=== PATIENT | female | born 1955 | race Caucasian/White ===

== ENCOUNTER 2017-05-15 07:05 | Observation (INO) | payer OTHER, SELFPAY ==
[2017-05-15] VITALS (12 sets, daily range): BP systolic 115–160; BP diastolic 65–104; PULSE 63–93; RESP 15–18; TEMP 36.4–37; O2SAT 94–100; BMI 25.8; BMI 32.7; BMI 32.8
--- NOTE | 2017-05-15 07:17 | RAD_ITS ---
STUDY: X-RAY CHEST REASON FOR EXAM: Female, 61 years old. Chest pain TECHNIQUE: Single frontal view of the chest. COMPARISON: None. FINDINGS: Calcified granuloma in the right midlung. The lungs are clear and expanded. There is no demonstrated pleural abnormality. Normal size heart. Normal mediastinum and luis. Normal visualized pulmonary arteries. Normal visualized aortic arch and descending thoracic aorta. Normal visualized thoracic spine. Normal visualized ribs, clavicles, and shoulders. There is no demonstrated abnormality of the visualized soft tissue structures of the upper abdomen. RAD/Chest 1 View (Portable) IMPRESSION: No acute pulmonary findings. Electronically Signed: Rubén Tucker MD at 7:34 EST Tel , Service support ,
--- NOTE | 2017-05-15 07:17 | EKG12_ITS ---
Test Reason : CP Blood Pressure : / mmHG Vent. Rate : 087 BPM Atrial Rate : 087 BPM P-R Int : 154 ms QRS Dur : 086 ms QT Int : 368 ms P-R-T Axes : 064 -02 044 degrees QTc Int : 442 ms Normal sinus rhythm Nonspecific ST abnormality Abnormal ECG Confirmed by JOSSIE POSADAS, VALDEZ ([id number]), editor managing newspaper DONELL SANDERS ([id number]) on 05/17/2017 1:20:56 PM Referred By: FAUSTINA Confirmed By:VALDEZ SETHI MD
--- NOTE | 2017-05-15 07:22 | ED.DCSUM_ITS ---
- ER Visit Summary Date of Service: 05/15/17 Chief Complaint: Chest pain History of Present Illness: The patient is a 61 F presenting with chest pain which started last night around 11 PM. She states she had intermittent pain throughout the evening. Pain is in the midsternal area radiating to her left shoulder. She denies diaphoresis, shortness of breath, nausea. She also complains of epigastric pain. She has a history of hypertension. Denies PE/DVT risk factors. She is a previous smoker. Physical Examination: Vitals are stable. Patient is afebrile. Alert no acute distress. HEENT exam is unremarkable. Neck is supple. Lungs are clear and equal bilaterally. Heart is regular rate and rhythm. Abdomen is soft nontender nondistended. No guarding or rebound. Extremities are unremarkable. Skin is warm and dry. No focal neurologic deficit. Remainder of exam is unremarkable. Emergency Department Course and Treatment: EKG is sinus rate of [address] depression laterally. Chest x-ray shows no acute process. CBC, chemistries unremarkable other than potassium 3.3. Liver lipase are normal. Troponin is negative. She is given aspirin, morphine, Zofran on arrival. On reevaluation, she is chest pain-free. Discussed with the hospitalist for observation. Disposition: Observation Impression: Chest pain This note was generated with [employer] dictation software. It may contain incorrect words, spelling, and punctuation that were not noted in review of the chart prior to signing ED Disposition - Plan for ED Patient: Chief Complaint: Chest Pain
[2017-05-15 07:29] LABS: Absolute Lymphocyte Count 2.08 X10^3/ul (0.83-4.51); Absolute Neutrophil Count 5.5 X10^3/uL (2.0-7.7); Basophil# 0.06 X10^3/uL; Basophil% 0.7 % (0-1); Eosinophils% 3.5 % (0-5); Hematocrit 43.8 % (37-47); Hemoglobin 14.5 g/dl (12.0-15.0); Lymphocyte # 2.08 X10^3/ul (4.0); Mean Corp Hgb Conc 33.1 g/gl (32-36); Mean Corpuscular Hgb 30.1 pg (27.0-32.0); Mean Corpuscular Volume 91.1 fL (81-99); Mean Platelet Vol. 9.6 fl (6.2-12.0); Monocyte# 0.69 X10^3/uL; Neutrophil % 63.6 % (47-70); POSITIVE COUNT NO; POSITIVE DIFFERENTIAL NO; POSITIVE MORPHOLOGY NO; Platelet Count 289 K/mm3 (150-450); RBC Distribution Width CV 13.4 % (11.6-14.6); RBC Distribution Width SD 44.3 fl (35.1-43.9); Red Blood Count 4.81 M/mm3 (4.2-5.4); White Blood Count 8.7 K/mm3 (4.4-11.0)
[2017-05-15] MEDS: Aspirin 81 MG TAB.CHEW 324 MG PO (07:35)
[2017-05-15] MEDS: Ondansetron 4 MG/2 ML Vial IV (07:37)
[2017-05-15 07:44] LABS: Anion Gap 6 (5-15); BUN 22 mg/dL (7-18); BUN/Creat Ratio 24.7 RATIO (10-20); Calcium,Total 9.7 mg/dL (8.5-10.1); Chloride 102 mmol/L (98-107); Creatinine, Serum 0.89 mg/dL (0.55-1.02); EST Glomerular Filtration Rate 68 mL/min (>60); Est Glom Filt Rate - Afr Amer 82 mL/min (>60); Estimated Creatinine Clearance 69.96 ml/min; Glucose 123 mg/dL (74-106); Lipase 179 U/L (73-393); Potassium 3.3 mmol/L (3.5-5.1); Sodium Level 140 mmol/L (136-145)
[2017-05-15 07:49] LABS: AST(SGOT) 23 U/L (15-37); Alanine Aminotransfer ALT/SGPT 41 U/L (13-56); Albumin, Serum 3.9 g/dL (3.2-5.0); Alkaline Phosphatase 101 U/L (45-117); Bilirubin, Direct 0.12 mg/dL (0.00-0.30); Globulin 4.3 g/dL (2.2-4.2); Protein, Total 8.2 g/dL (6.4-8.2)
--- NOTE | 2017-05-15 09:53 | PCM.HP.STD ---
Problem List (1) Hypertension Status: Chronic History of Present Illness Date of Admission: 05/15/17 Chief Complaint: Chest pain. The patient is a 61 year old F with past medical history as mentioned above presented to the emergency room because of chest pain. Her abdomen started last night around 11 PM with central chest pain, retrosternal, constant pain, dull aching pain, 8 out of 10 in severity, radiates to the left side of her chest and underneath her left breast, associated with dizziness and without aggravating or relieving factors. She denied shortness of breath, sweating, nausea vomiting. Also, she complains of vague epigastric pain that has been going on for some time. In the emergency room, her blood pressure was slightly elevated, other vital signs were stable. Her routine blood work was remarkable for potassium of 3.3, otherwise normal. Troponin is negative. EKG revealed sinus rhythm with minimal ST depression in leads V3 and V4, otherwise normal. Chest x-ray showed no acute findings. She is being admitted for chest pain for evaluation. Past Medical History Past Medical History (Chronic Problems): Chronic Problems Hypertension (Chronic) Allergies ciprofloxacin HCl [From Cipro HC] Allergy (Verified 09/07/13 09:40) Swelling hydrocortisone [From Cipro HC] Allergy (Verified 09/07/13 09:40) Swelling Home Medications: Ambulatory Orders Medication Instructions Recorded Hydrochlorothiazide 25 mg PO DAILY 09/07/13 Lansoprazole [Prevacid] 30 mg PO DAILY 09/07/13 Loratadine [Claritin] 10 mg PO DAILY 09/07/13 Metoprolol Tartrate [Lopressor 50 mg PO BID 09/07/13 (Beta Milton)] Surgical History: cholecystectomy Psychiatric History: Anxiety 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 Denies: Chest Tightness, Light Headedness, Orthopnea, Paroxysmal Noc. Dyspnea, Syncope Respiratory: Denies: Cough, Shortness of Breath, Sputum production, Wheezing Gastrointestinal: Reports: Nausea. Denies: Abdominal Pain, Constipation, Diarrhea, Vomiting Genitourinary: Denies: Dysuria, Frequency, Hematuria Musculoskeletal: Denies: Arm Pain, Back Pain, Foot Pain Skin: Denies: Dryness, Rash Neurological: Denies: Balance problems, Double vision, Change in Speech, Slurred speech, Confusion, Headaches, Numbness, Tingling Psychiatric: Reports: Anxiety. Denies: Depression Endocrine: Denies: Change in Body Habitus, Polydipsia VTE Information - Inpt Only VTE Present on Admission: No VTE Mechan Device Prophylaxis: None VTE Pharm Prophylaxis ordered?: Yes - Physical Exam General: Alert, Oriented x3, Cooperative, No apparent distress HEENT: Atraumatic, PERRLA, EOMI Oral: Moist Mucosa, No Gingival or Mucosal Lesions/ Ulcerations Neck: Supple, No JVD, Negative Carotid Bruits, Trachea Midline, Thyroid Normal Size and Texture Lungs: Clear to auscultation, Normal air movement, No rhonchi, No wheeze, No rales Cardiovascular: Regular rate, Regular Rhythm, Normal S1, Normal S2, No murmurs Abdomen: Bowel Sounds Present, Soft, Non Tender, Non-Distended, No Hepato-splenomegaly Extremities: No clubbing, No cyanosis, No edema Skin: No rashes, No breakdown Lymphatic: No Cervical, Supraclavicular, or Inguinal Adenopathy Neurological: Cranial nerves II-XII grossly intact, Motor Exam 5/5 strength throughout Psych/Mental Status: Normal Affect, Appropriate, Alert and oriented to time, place, person, mood and affect Vital Signs Temp Pulse Resp BP Pulse Ox 97.8 F 75 16 141/91 H 95 05/15/17 07:10 05/15/17 08:43 05/15/17 08:43 05/15/17 08:43 05/15/17 08:43 Oxygen Delivery Method Room Air Weight: 196 lb 13.965 oz Body Mass Index (BMI) 32.7 Laboratory Tests 05/15/17 05/15/17 05/15/17 Range/Units 07:17 07:17 07:17 WBC 8.7 (4.4-11.0) K/mm3 RBC 4.81 (4.2-5.4) M/mm3 Hgb 14.5 (12.0-15.0) g/dl Hct 43.8 (37-47) % MCV 91.1 (81-99) fL MCH 30.1 (27.0-32.0) pg MCHC 33.1 (32-36) g/gl RDW 13.4 (11.6-14.6) % RDW Differential 44.3 H (35.1-43.9) fl Plt Count 289 (150-450) K/mm3 MPV 9.6 (6.2-12.0) fl Immature Gran % (Auto) 0.200 (0.0-0.9) % Neut % (Auto) 63.6 (47-70) % Lymph % (Auto) 24.0 (19-41) % Weld % (Auto) 8.0 (0-10) % Eos % (Auto) 3.5 (0-5) % Baso % (Auto) 0.7 (0-1) % Absolute Neuts (auto) 5.5 (2.0-7.7) X10^3/uL Absolute Lymphs (auto) 2.08 (0.83-4.51) X10^3/ul Total Counted Not Reportable Sodium 140 (136-145) mmol/L Potassium 3.3 L (3.5-5.1) mmol/L Chloride 102 (98-107) mmol/L Carbon Dioxide 32.0 (21.0-32.0) mmol/L Anion Gap 6 (5-15) BUN 22 H (7-18) mg/dL Creatinine 0.89 (0.55-1.02) mg/dL Estim Creat Clear Calc 69.96 ml/min Est GFR (MDRD) Af Amer 82 (>60) mL/min Est GFR (MDRD) Non-Af 68 (>60) mL/min BUN/Creatinine Ratio 24.7 H (10-20) RATIO Glucose 123 H (74-106) mg/dL Calcium 9.7 (8.5-10.1) mg/dL Total Bilirubin 0.60 (0.20-1.00) mg/dL Direct Bilirubin 0.12 (0.00-0.30) mg/dL AST 23 (15-37) U/L ALT 41 (13-56) U/L Alkaline Phosphatase 101 (45-117) U/L Troponin I < 0.02 (<0.06) ng/mL Total Protein 8.2 (6.4-8.2) g/dL Albumin 3.9 (3.2-5.0) g/dL Globulin 4.3 H (2.2-4.2) g/dL Lipase 179 (73-393) U/L Clinical Impression(s) from Imaging Studies Chest X-Ray 05/15/17 07:17 IMPRESSION: No acute pulmonary findings. Electronically Signed: Rubén Tucker MD at 7:34 EST Tel , Service support , Assessment/Plan This is a 61 years old female patient presented to the medicine because of chest pain and she is being admitted for evaluation. #1 chest pain: Seems to be atypical. Risk factors are only hypertension. Her CAMMIE score is 0. EKG reviewed, no acute ischemic changes. First troponin is negative. She denied family history of premature CAD. Plan: Admit to PCU for observation, cardiac monitoring, serial cardiac enzymes, Protonix twice daily repeat EKG tomorrow morning, treadmill stress test tomorrow morning if cardiac enzymes are negative, lipid profile. #2 hypokalemia: Secondary to HCTZ, potassium 3.3. Plan to replace potassium with K Dur. #3 GERD: Continue PPI, Protonix twice daily. #4 hypertension: Blood pressure slightly elevated. Plan to continue HCTZ, hold metoprolol for stress test, IV hydralazine as needed. #5 DVT prophylaxis, subcu Lovenox. This note was generated with [employer] dictation software. It may contain incorrect words, spelling, and punctuation that were not noted in checking the note before signing. Code Visit OBSV E&M: 43466 Initial observation care L2
--- NOTE | 2017-05-15 10:01 | HP.PCM_ITS ---
Problem List (1) Hypertension Status: Chronic History of Present Illness Date of Admission: 05/15/17 Chief Complaint: Chest pain. The patient is a 61 year old F with past medical history as mentioned above presented to the emergency room because of chest pain. Her abdomen started last night around 11 PM with central chest pain, retrosternal, constant pain, dull aching pain, 8 out of 10 in severity, radiates to the left side of her chest and underneath her left breast, associated with dizziness and without aggravating or relieving factors. She denied shortness of breath, sweating, nausea vomiting. Also, she complains of vague epigastric pain that has been going on for some time. In the emergency room, her blood pressure was slightly elevated, other vital signs were stable. Her routine blood work was remarkable for potassium of 3.3, otherwise normal. Troponin is negative. EKG revealed sinus rhythm with minimal ST depression in leads V3 and V4, otherwise normal. Chest x-ray showed no acute findings. She is being admitted for chest pain for evaluation. Past Medical History Past Medical History (Chronic Problems): Chronic Problems Hypertension (Chronic) Allergies ciprofloxacin HCl [From Cipro HC] Allergy (Verified 09/07/13 09:40) Swelling hydrocortisone [From Cipro HC] Allergy (Verified 09/07/13 09:40) Swelling Home Medications: Ambulatory Orders Medication Instructions Recorded Hydrochlorothiazide 25 mg PO DAILY 09/07/13 Lansoprazole [Prevacid] 30 mg PO DAILY 09/07/13 Loratadine [Claritin] 10 mg PO DAILY 09/07/13 Metoprolol Tartrate [Lopressor 50 mg PO BID 09/07/13 (Beta Milton)] Surgical History: cholecystectomy Psychiatric History: Anxiety 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 Denies: Chest Tightness, Light Headedness , Orthopnea, Paroxysmal Noc. Dyspnea, Syncope Respiratory: Denies: Cough, Shortness of Breath, Sputum production, Wheezing Gastrointestinal: Reports: Nausea. Denies: Abdominal Pain, Constipation, Diarrhea, Vomiting Genitourinary: Denies: Dysuria, Frequency, Hematuria Musculoskeletal: Denies: Arm Pain, Back Pain, Foot Pain Skin: Denies: Dryness, Rash Neurological: Denies: Balance problems, Double vision, Change in Speech, Slurred speech, Confusion, Headaches, Numbness, Tingling Psychiatric: Reports: Anxiety. Denies: Depression Endocrine: Denies: Change in Body Habitus, Polydipsia VTE Information - Inpt Only VTE Present on Admission: No VTE Mechan Device Prophylaxis: None VTE Pharm Prophylaxis ordered?: Yes - Physical Exam General: Alert, Oriented x3, Cooperative, No apparent distress HEENT: Atraumatic, PERRLA, EOMI Oral: Moist Mucosa, No Gingival or Mucosal Lesions/ Ulcerations Neck: Supple, No JVD, Negative Carotid Bruits, Trachea Midline, Thyroid Normal Size and Texture Lungs: Clear to auscultation, Normal air movement, No rhonchi, No wheeze, No rales Cardiovascular: Regular rate, Regular Rhythm, Normal S1, Normal S2, No murmurs Abdomen: Bowel Sounds Present, Soft, Non Tender, Non-Distended, No Hepato- splenomegaly Extremities: No clubbing, No cyanosis, No edema Skin: No rashes, No breakdown Lymphatic: No Cervical, Supraclavicular, or Inguinal Adenopathy Neurological: Cranial nerves II-XII grossly intact, Motor Exam 5/5 strength throughout Psych/Mental Status: Normal Affect, Appropriate, Alert and oriented to time, place, person, mood and affect Vital Signs Temp Pulse Resp BP Pulse Ox 97.8 F 75 16 141/91 H 95 05/15/17 07:10 05/15/17 08:43 05/15/17 08:43 05/15/17 08:43 05/15/17 08:43 Oxygen Delivery Method Room Air Weight: 196 lb 13.965 oz Body Mass Index (BMI) 32.7 Laboratory Tests 3 05/15/17 05/15/17 05/15/17 Range/Units 07:17 07:17 07:17 WBC 8.7 (4.4-11.0) K/mm3 RBC 4.81 (4.2-5.4) M/mm3 Hgb 14.5 (12.0-15.0) g/dl Hct 43.8 (37-47) % MCV 91.1 (81-99) fL MCH 30.1 (27.0-32.0) pg MCHC 33.1 (32-36) g/gl RDW 13.4 (11.6-14.6) % RDW Differential 44.3 H (35.1-43.9) fl Plt Count 289 (150-450) K/mm3 MPV 9.6 (6.2-12.0) fl Immature Gran % (Auto) 0.200 (0.0-0.9) % Neut % (Auto) 63.6 (47-70) % Lymph % (Auto) 24.0 (19-41) % [place]eth % (Auto) 8.0 (0-10) % Eos % (Auto) 3.5 (0-5) % Baso % (Auto) 0.7 (0-1) % Absolute Neuts (auto) 5.5 (2.0-7.7) X10^3/uL Absolute Lymphs (auto) 2.08 (0.83-4.51) X10^3/ul Total Counted Not Reportable Sodium 140 (136-145) mmol/L Potassium 3.3 L (3.5-5.1) mmol/L Chloride 102 (98-107) mmol/L Carbon Dioxide 32.0 (21.0-32.0) mmol/L Anion Gap 6 (5-15) BUN 22 H (7-18) mg/dL Creatinine 0.89 (0.55-1.02) mg/dL Estim Creat Clear Calc 69.96 ml/min Est GFR (MDRD) Af Amer 82 (>60) mL/min Est GFR (MDRD) Non-Af 68 (>60) mL/min BUN/Creatinine Ratio 24.7 H (10-20) RATIO Glucose 123 H (74-106) mg/dL Calcium 9.7 (8.5-10.1) mg/dL Total Bilirubin 0.60 (0.20-1.00) mg/dL Direct Bilirubin 0.12 (0.00-0.30) mg/dL AST 23 (15-37) U/L ALT 41 (13-56) U/L Alkaline Phosphatase 101 (45-117) U/L Troponin I < 0.02 (<0.06) ng/mL Total Protein 8.2 (6.4-8.2) g/dL Albumin 3.9 (3.2-5.0) g/dL Globulin 4.3 H (2.2-4.2) g/dL Lipase 179 (73-393) U/L Clinical Impression(s) from Imaging Studies Chest X-Ray 05/15/17 07:17 IMPRESSION: No acute pulmonary findings. Electronically Signed: Rubén Tucker MD at 7:34 EST Tel , Service support , Assessment/Plan This is a 61 years old female patient presented to the medicine because of chest pain and she is being admitted for evaluation. #1 chest pain: Seems to be atypical. Risk factors are only hypertension. Her CAMMIE score is 0. EKG reviewed, no acute ischemic changes. First troponin is negative. She denied family history of premature CAD. Plan: Admit to PCU for observation, cardiac monitoring, serial cardiac enzymes, Protonix twice daily repeat EKG tomorrow morning, treadmill stress test tomorrow morning if cardiac enzymes are negative, lipid profile. #2 hypokalemia: Secondary to HCTZ, potassium 3.3. Plan to replace potassium with K Dur. #3 GERD: Continue PPI, Protonix twice daily. #4 hypertension: Blood pressure slightly elevated. Plan to continue HCTZ, hold metoprolol for stress test, IV hydralazine as needed. #5 DVT prophylaxis, subcu Lovenox. This note was generated with [employer] dictation software. It may contain incorrect words, spelling, and punctuation that were not noted in checking the note before signing. Code Visit OBSV E&M: 41355 Initial observation care L2
[2017-05-15] MEDS: 0.9% Normal Saline 1,000 ML 75 ML IV (10:26)
[2017-05-15] MEDS: Pantoprazole Sodium 40 MG Tablet PO ×2 (10:30→21:43)
[2017-05-15] MEDS: hydroCHLOROthiazide 25 MG Tablet PO (10:30)
[2017-05-15] MEDS: Loratadine 10 MG Tablet PO (10:30)
[2017-05-15 11:05] LABS: Cholesterol 183 mg/dL (200); High Density Lipoprotein 51 mg/dL; Triglycerides 114 mg/dL; Very Low Density Lipoprotein 23 mg/dL (5-40)
[2017-05-15] MEDS: Naproxen 250 MG Tablet PO (17:46)
[2017-05-16 03:00] VITALS: PULSE 67
[2017-05-16 03:30] VITALS: BP 120/77; PULSE 67; RESP 18; TEMP 37; O2SAT 96
[2017-05-16 05:20] LABS: Hematocrit 38.5 % (37-47); Hemoglobin 12.5 g/dl (12.0-15.0); Mean Corp Hgb Conc 32.5 g/gl (32-36); Mean Corpuscular Hgb 30.3 pg (27.0-32.0); Mean Corpuscular Volume 93.2 fL (81-99); Mean Platelet Vol. 9.5 fl (6.2-12.0); Platelet Count 242 K/mm3 (150-450); RBC Distribution Width CV 13.4 % (11.6-14.6); RBC Distribution Width SD 44.7 fl (35.1-43.9); Red Blood Count 4.13 M/mm3 (4.2-5.4)
[2017-05-16 05:23] LABS: Prothrombin Time (Protime)PT. 13.2 SECONDS (11.7-14.9)
[2017-05-16 05:24] LABS: Partial Thromboplast Time 31.3 Seconds (24.1-36.2)
[2017-05-16 05:29] LABS: Anion Gap 7 (5-15); BUN 16 mg/dL (7-18); Calcium,Total 8.5 mg/dL (8.5-10.1); Chloride 104 mmol/L (98-107); EST Glomerular Filtration Rate 77 mL/min (>60); Est Glom Filt Rate - Afr Amer 93 mL/min (>60); Estimated Creatinine Clearance 64.77 ml/min; Glucose 100 mg/dL (74-106); Sodium Level 141 mmol/L (136-145)
[2017-05-16 05:37] LABS: Scan Indicated on CBC? Y/N NO
--- NOTE | 2017-05-16 05:55 | EKG12_ITS ---
Test Reason : AM EKG Blood Pressure : / mmHG Vent. Rate : 072 BPM Atrial Rate : 072 BPM P-R Int : 178 ms QRS Dur : 088 ms QT Int : 412 ms P-R-T Axes : 058 -09 030 degrees QTc Int : 451 ms Normal sinus rhythm Normal ECG When compared with ECG of 15-MAY-2017 07:13, MANUAL COMPARISON REQUIRED, DATA IS UNCONFIRMED Confirmed by BROOKE VALLES ([id number]), newspaper editor DONELL SANDERS ([id number]) on 05/18/2017 3:17:57 PM Referred By: DR ROBERTS Confirmed By:BROOKE VALLES
[2017-05-16 06:10] VITALS: BP 144/82; PULSE 72; RESP 16; TEMP 36.6; O2SAT 99
[2017-05-16] MEDS: hydroCHLOROthiazide 25 MG Tablet PO (08:50)
[2017-05-16] MEDS: Pantoprazole Sodium 40 MG Tablet PO (08:50)
[2017-05-16] MEDS: Loratadine 10 MG Tablet PO (08:50)
[2017-05-16] MEDS: Naproxen 250 MG Tablet PO (08:58)
[2017-05-16 09:00] VITALS: PULSE 85
--- NOTE | 2017-05-16 09:50 | STRESSREP ---
Stress Test Report Date: 05/16/2017 Procedure: Exercise tolerance test/imaging study Indications: Chest pain Consent: Per the patient Procedure: The patient exercised a Byron protocol for 6 minutes completing stage II achieving a peak heart rate of 162 bpm (103% predicted maximal heart rate) with a peak blood pressure 174/78 mmHg and a peak MET capacity of approximately 7 MET's. The baseline ECG demonstrated normal sinus rhythm. The peak exercise ECG demonstrated no obvious ECG changes. There was a rare premature ectopic complexes during exercise. The functional capacity was considered average. There was no complaint of chest discomfort during exercise recovery. The examination was discontinued secondary to completion of protocol. Impression: 1. Technically adequate (percent predicted maximal heart rate greater than 85%) exercise tolerance test 2. Peak exercise ECG with no obvious ECG changes 3. Rare premature ectopic complexes during exercise 4. Nuclear images pending Myocardial perfusion imaging study: Technique: The patient was injected with 13.8 mCi of technetium 99m Cardiolite and subsequently rest SPECT Cardiolite nuclear imaging was obtained in the horizontal long, vertical long, and short axis views. The patient exercised a Byron protocol for 6 minutes completing stage II achieving a peak heart rate of 162 bpm (103% predicted maximal heart rate) with a peak blood pressure 174/78 mmHg and a peak MET capacity of approximately 7 MET's the patient was injected with 42.3 mCi of technetium 99m Cardiolite and subsequently stress SPECT Cardiolite nuclear imaging was obtained in the horizontal long, vertical long, and short axis views. A gated Cardiolite study at peak stress was obtained. Interpretation: Rest and stress SPECT Cardiolite nuclear imaging status post realignment, normalization, and attenuation correction, demonstrates the appearance of relative uniform tracer uptake and myocardial perfusion appearing within normal limits. There is end systolic thickening and brightening. The gated Cardiolite study demonstrates myocardial thickening and inward wall motion. The reported LVEF is 79%. Impression: 1. Rest and stress SPECT Cardiolite nuclear imaging demonstrates relative uniform tracer uptake and myocardial perfusion appearing within normal limits. 2. The gated Cardiolite study reports an LVEF of 79%. This note was generated with [employer] software. Every effort was made to ensure accuracy, however, computerized cash controller mistakes may persist.
--- NOTE | 2017-05-16 09:56 | STRESSREP_ITS ---
Stress Test Report Date: 05/16/2017 Procedure: Exercise tolerance test/imaging study Indications: Chest pain Consent: Per the patient Procedure: The patient exercised a Byron protocol for 6 minutes completing stage II achieving a peak heart rate of 162 bpm (103% predicted maximal heart rate) with a peak blood pressure 174/78 mmHg and a peak MET capacity of approximately 7 MET 's. The baseline ECG demonstrated normal sinus rhythm. The peak exercise ECG demonstrated no obvious ECG changes. There was a rare premature ectopic complexes during exercise. The functional capacity was considered average. There was no complaint of chest discomfort during exercise recovery. The examination was discontinued secondary to completion of protocol. Impression: 1. Technically adequate (percent predicted maximal heart rate greater than 85% ) exercise tolerance test 2. Peak exercise ECG with no obvious ECG changes 3. Rare premature ectopic complexes during exercise 4. Nuclear images pending Myocardial perfusion imaging study: Technique: The patient was injected with 13.8 mCi of technetium 99m Cardiolite and subsequently rest SPECT Cardiolite nuclear imaging was obtained in the horizontal long, vertical long, and short axis views. The patient exercised a Byron protocol for 6 minutes completing stage II achieving a peak heart rate of 162 bpm (103% predicted maximal heart rate) with a peak blood pressure 174/78 mmHg and a peak MET capacity of approximately 7 MET's the patient was injected with 42.3 mCi of technetium 99m Cardiolite and subsequently stress SPECT Cardiolite nuclear imaging was obtained in the horizontal long, vertical long, and short axis views. A gated Cardiolite study at peak stress was obtained. Interpretation: Rest and stress SPECT Cardiolite nuclear imaging status post realignment, normalization, and attenuation correction, demonstrates the appearance of relative uniform tracer uptake and myocardial perfusion appearing within normal limits. There is end systolic thickening and brightening. The gated Cardiolite study demonstrates myocardial thickening and inward wall motion. The reported LVEF is 79%. Impression: 1. Rest and stress SPECT Cardiolite nuclear imaging demonstrates relative uniform tracer uptake and myocardial perfusion appearing within normal limits. 2. The gated Cardiolite study reports an LVEF of 79%. This note was generated with [employer] software. Every effort was made to ensure accuracy, however, computerized pinsetter mechanic helper mistakes may persist.
--- NOTE | 2017-05-16 10:06 | DCINST_ITS ---
You will use the following diet at home:: Cardiac Your food should be the consistency of: Regular Discharge Activity: Return to Normal Activity Weight Bearing Status: Full weight bearing Call your doctor if you observe: Fever of 101 or Higher, Shortness of breath, Dizziness, Fainting spells, Chest pain, Increased palpitations (irregular heartbeat), Uncontrolled pain Instructions: Controlling High Blood Pressure, Tips for Using Less Salt, Low- Salt Choices, Taking Your Blood Pressure, Discharge Instructions for Gastroesophageal Reflux Disease (GERD) Allergies/Adverse Reactions: Allergies ciprofloxacin HCl [From Cipro HC] Allergy (Verified 09/07/13 09:40) Swelling hydrocortisone [From Cipro HC] Allergy (Verified 09/07/13 09:40) Swelling Medications to take at Discharge Hydrochlorothiazide 25 mg PO DAILY 09/07/13 Lansoprazole [Prevacid] 30 mg PO DAILY 09/07/13 Loratadine [Claritin] 10 mg PO DAILY 09/07/13 Metoprolol Tartrate [Lopressor (beta gilberto)] 50 mg PO BID 09/07/13 Primary Care Physician: Ty Rivas MD [Primary Care Provider] - Please follow up with your Primary Care Physician in: 1-2 weeks.
[2017-05-16 10:46] VITALS: BP 151/98; PULSE 73; RESP 13; TEMP 36.8; O2SAT 93
--- NOTE | 2017-05-16 12:49 | PCM.DC.SUM ---
Discharge Date and Diagnosis Date of Admission: 05/15/17 Date of Discharge: 05/16/17 - Primary Discharge Diagnosis #1 chest pain, attributed to possible GERD, ACS ruled out. #2 mild hypokalemia. - Secondary Discharge Diagnosis Chronic Problems Hypertension (Chronic) Hospital Course and Treatment Imaging Results: 05/16/17 05:55 Nuclear Stress Test - Treadmil [NM] AM (NON MEDS) Clinical Impression(s) from Imaging Studies Chest X-Ray 05/15/17 07:17 IMPRESSION: No acute pulmonary findings. Electronically Signed: Rubén Tucker MD at 7:34 EST Tel , Service support , Operations: None Procedures: EKG, Stress test Summary of Care Provided: Patient seen and examined on the day of discharge and appeared to be stable to be discharged home. She has no more chest pain. Vital signs are stable. - Physical Exam General: Alert, Oriented x3, Cooperative, No apparent distress. HEENT: Atraumatic, PERRLA, EOMI. Neck: Supple, No JVD, Negative Carotid Bruits, Trachea Midline, Thyroid Normal. Lungs: Clear to auscultation, Normal air movement, No rhonchi, No wheeze, No rales. Cardiovascular: Regular rate, Regular Rhythm, Normal S1, Normal S2, PMI Normal. Abdomen: Bowel Sounds Present, Soft, Non Tender, Non-Distended, No Hepato-splenomegaly. Extremities: No clubbing, No cyanosis, No edema Skin: No rashes, No breakdown Neurological: Neuro grossly intact Vital Signs are stable. Hospital course: The patient is a 61 year old F because of chest pain for evaluation. The chest pain was atypical according to the patient history and her only risk factor was hypertension. Her EKG revealed normal sinus rhythm without acute ischemic changes. Troponin was negative ?3. Chest x-ray showed no acute findings. She underwent nuclear stress test that revealed no evidence of stress-induced myocardial ischemia, ACS ruled out. Her potassium most likely because of HCTZ which was replaced and corrected. Patient with history of GERD and this is probably the etiology of her chest pain. Her other vital signs were stable. Patient discharged home in a stable medical condition, discharged on the same medication that she has been taking before admission including PPI, recommended follow-up with PCP in 1-2 weeks. Discharge Activity: Return to Normal Activity Weight Bearing Status: Full weight bearing Call your doctor if you observe: Fever of 101 or Higher, Shortness of breath, Dizziness, Fainting spells, Chest pain, Increased palpitations (irregular heartbeat), Uncontrolled pain Home Medications: Medications to take at Discharge Hydrochlorothiazide 25 mg PO DAILY 09/07/13 Lansoprazole [Prevacid] 30 mg PO DAILY 09/07/13 Loratadine [Claritin] 10 mg PO DAILY 09/07/13 Metoprolol Tartrate [Lopressor (beta gilberto)] 50 mg PO BID 09/07/13 Primary Care Physician: Ty Rivas MD [Primary Care Provider] - Please follow up with your Primary Care Physician in: 1-2 weeks. Patient Instructions: Controlling High Blood Pressure, Tips for Using Less Salt, Low-Salt Choices, Taking Your Blood Pressure, Discharge Instructions for Gastroesophageal Reflux Disease (GERD) Disposition: Home Minutes spent on discharge:: 24 Patient Condition:: Stable Meaningful Use Info Meaningful Use Diagnoses (Choose all that apply): None applicable Code Visit OBSV E&M: 83789 Observation care discharge
--- NOTE | 2017-05-16 12:52 | DS.PCM_ITS ---
Discharge Date and Diagnosis Date of Admission: 05/15/17 Date of Discharge: 05/16/17 - Primary Discharge Diagnosis #1 chest pain, attributed to possible GERD, ACS ruled out. #2 mild hypokalemia. - Secondary Discharge Diagnosis Chronic Problems Hypertension (Chronic) Hospital Course and Treatment Imaging Results: 05/16/17 05:55 Nuclear Stress Test - Treadmil [NM] AM (NON MEDS) Clinical Impression(s) from Imaging Studies Chest X-Ray 05/15/17 07:17 IMPRESSION: No acute pulmonary findings. Electronically Signed: Rubén Tucker MD at 7:34 EST Tel , Service support , Operations: None Procedures: EKG, Stress test Summary of Care Provided: Patient seen and examined on the day of discharge and appeared to be stable to be discharged home. She has no more chest pain. Vital signs are stable. - Physical Exam General: Alert, Oriented x3, Cooperative, No apparent distress. HEENT: Atraumatic, PERRLA, EOMI. Neck: Supple, No JVD, Negative Carotid Bruits, Trachea Midline, Thyroid Normal. Lungs: Clear to auscultation, Normal air movement, No rhonchi, No wheeze, No rales. Cardiovascular: Regular rate, Regular Rhythm, Normal S1, Normal S2, PMI Normal. Abdomen: Bowel Sounds Present, Soft, Non Tender, Non-Distended, No Hepato- splenomegaly. Extremities: No clubbing, No cyanosis, No edema Skin: No rashes, No breakdown Neurological: Neuro grossly intact Vital Signs are stable. Hospital course: The patient is a 61 year old F because of chest pain for evaluation. The chest pain was atypical according to the patient history and her only risk factor was hypertension. Her EKG revealed normal sinus rhythm without acute ischemic changes. Troponin was negative ?3. Chest x-ray showed no acute findings. She underwent nuclear stress test that revealed no evidence of stress-induced myocardial ischemia, ACS ruled out. Her potassium most likely because of HCTZ which was replaced and corrected. Patient with history of GERD and this is probably the etiology of her chest pain. Her other vital signs were stable. Patient discharged home in a stable medical condition, discharged on the same medication that she has been taking before admission including PPI, recommended follow-up with PCP in 1-2 weeks. Discharge Activity: Return to Normal Activity Weight Bearing Status: Full weight bearing Call your doctor if you observe: Fever of 101 or Higher, Shortness of breath, Dizziness, Fainting spells, Chest pain, Increased palpitations (irregular heartbeat), Uncontrolled pain Home Medications: Medications to take at Discharge Hydrochlorothiazide 25 mg PO DAILY 09/07/13 Lansoprazole [Prevacid] 30 mg PO DAILY 09/07/13 Loratadine [Claritin] 10 mg PO DAILY 09/07/13 Metoprolol Tartrate [Lopressor (beta gilberto)] 50 mg PO BID 09/07/13 Primary Care Physician: Ty Rivas MD [Primary Care Provider] - Please follow up with your Primary Care Physician in: 1-2 weeks. Patient Instructions: Controlling High Blood Pressure, Tips for Using Less Salt , Low-Salt Choices, Taking Your Blood Pressure, Discharge Instructions for Gastroesophageal Reflux Disease (GERD) Disposition: Home Minutes spent on discharge:: 24 Patient Condition:: Stable Meaningful Use Info Meaningful Use Diagnoses (Choose all that apply): None applicable Code Visit OBSV E&M: 12675 Observation care discharge
== END 2017-05-16 11:12 | disposition home or self-care (01) ==
LOC: ED 07:49 → PCU 08:36
PROVIDERS: Admitting Provider Hospitalist; Emergency Provider Emergency Medicine; Family Provider Family Medicine; PCP Family Medicine; Visit Provider Hospitalist
DX: R07.89 Other chest pain (principal); E87.6 Hypokalemia; I10 Essential (primary) hypertension; K21.9 Gastro-esophageal reflux disease without esophagitis; Z79.899 Other long term (current) drug therapy; Z87.891 Personal history of nicotine dependence
CPT/HCPCS: 36415; 71045; 78452; 80048; 80061; 80076; 83690; 84484; 85025; 85027; 85610; 85730; 93005; 93017; 96361; 96374; 96375; 99218; 99285; A9500; J7030; A4216; G0378; J2405

== ENCOUNTER 2020-04-04 00:54 | Emergency (ER) | payer OTHER, SELFPAY ==
[2020-04-04] VITALS (8 sets, daily range): BP systolic 112–187; BP diastolic 76–102; PULSE 64–81; RESP 12–20; TEMP 36.8; O2SAT 93–98; BMI 32.1
--- NOTE | 2020-04-04 01:03 | EKG12_ITS ---
Test Reason : DYSRHYTHMIA Blood Pressure : / mmHG Vent. Rate : 067 BPM Atrial Rate : 067 BPM P-R Int : 164 ms QRS Dur : 080 ms QT Int : 398 ms P-R-T Axes : 060 -01 032 degrees QTc Int : 420 ms Normal sinus rhythm Normal ECG Confirmed by MARIA ELENA POSADAS, LAMONT ([id number]), script editor MIGUELINA GUAJARDO ([id number]) on 04/06/2020 10:23:14 AM Referred By: NINFA Confirmed By:LAMONT ARREDONDO MD
--- NOTE | 2020-04-04 01:05 | ED.VIS.GEN ---
History of Present Illness Chief Complaint: Overdose Informant: Patient Narrative: Stated she was getting her night medications in order and placing them in her containers. She took some of her medicines up to her bathroom where she keeps her evening medication. She stated she accidentally was not thinking and decided to take her oral metoprolol medication as she had them in her hand. She took approximately 15 per patient on accident. She stated she then realized soon after what she had done but was not thinking about what she was doing. She was not trying to hurt herself on purpose. He thought about trying to throw them up but decided to come immediately to the hospital. She denies any symptoms at this time. She is never done this before. She takes this 50 mg tablet twice a day normally for hypertension as well as hydrochlorothiazide. - Past Medical History (1) Hypertension Status: Chronic Past Medical History - Allergies and Home Meds Allergies/Adverse Reactions: Allergies ciprofloxacin HCl [From Cipro HC] Allergy (Verified 09/07/13 09:40) Swelling hydrocortisone [From Cipro HC] Allergy (Verified 09/07/13 09:40) Swelling Primary Care Physician: Ty Rivas MD [Primary Care Provider] - Prior records reviewed: Yes Past Medical History: - Surgical History: cholecystectomy Lives: With Family Smoking Status: Former smoker Alcohol: None Drugs: None - Family History Maternal Family History: Reports: Hypertension Paternal Family History: Reports: Diabetes, Hypertension Review of Systems General: Denies: Chills, Fever, Sweats Eyes: Denies: Visual changes - bilaterally, Diplopia ENT: Denies: Rhinorrhea, Sore throat Cardiovascular: Denies: Chest pain, Palpitations Respiratory: Denies: Dyspnea, Cough, Dyspnea on exertion Gastrointestinal: Denies: Abdominal pain, Nausea, Vomiting, Diarrhea, Melena, Hematochezia Genitourinary: Denies: Dysuria, Hematuria, Frequency Musculoskeletal: Denies: Back pain, Extremity Pain Skin: Denies: Rash, Wounds Neurological: Denies: Headache, Weakness, Numbness Physical Exam Vital Signs/Narrative: Vital Signs Temp Pulse Resp BP Pulse Ox 04/04/20 00:55 98.2 F 81 16 187/102 H 97 04/04/20 00:54 98.2 F 76 16 187/102 H 98 General: Well nourished, Well developed, No Acute Distress Head: Normocephalic, Atraumatic Eyes: Perrl, EOMI ENT: Moist mucous membranes, No rhinorrhea Neck: Supple, Nontender Cardiovascular: Regular rate, Regular rhythm, No murmurs Respiratory: No distress, CTA bilaterally, Chest nontender Abdomen: Soft, Nontender, Nondistended, Normal bowel sounds Back: Nontender, Normal Inspection Extremities: Nontender, No edema Skin: Normal color, No rash Neurological: Alert, Oriented x3, Cranial nerves II-XII grossly intact, Normal Strength, Normal Sensation Psychological: Normal affect, Normal Mood Diagnostic/Tx/Re-eval - Medical Decision Making Patient stable upon arrival. EKG lab work obtained. Given IV fluids. Patient given activated charcoal. Lab work showed nothing acute including CBC and BMP. EKG interpreted by myself shows sinus rhythm at a rate of 67 with no acute ischemia or arrhythmia. The patient was monitored for over 5 hours in the emergency department. She never developed a bradycardia or hypotension. She did have 1 loose bowel movement secondary to the charcoal. At this time the patient will be discharged in the morning. She will hold her beta-gilberto for the day and follow-up with her family doctor and marine resource economist. I feel this is an accidental overdose ED Disposition - Plan for ED Patient: Disposition: Home or Assisted Living Diagnosis: Accidental overdose Instructions: ED Accidental Ingestion Nontoxic Adult Referrals: Ty Rivas MD [Primary Care Provider] -
[2020-04-04] MEDS: 0.9% Normal Saline 1,000 ML 1000 ML IV (01:15)
[2020-04-04] MEDS: Activated Charcoal/Sorbitol 50 GM/240 ML BOT PO (01:15)
[2020-04-04 01:17] LABS: Absolute Lymphocyte Count 2.95 X10^3/uL (0.83-4.51); Absolute Neutrophil Count 6.1 X10^3/uL (2.0-7.7); Basophil# 0.06 X10^3/uL; Basophil% 0.5 % (0-1); Eosinophil# 0.63 X10^3/uL; Eosinophils% 5.7 % (0-5); Hematocrit 42.7 % (37-47); Hemoglobin 13.5 g/dL (12.0-15.0); Lymphocyte # 2.95 X10^3/ul (4.0); Lymphocyte % 26.5 % (19-41); Mean Corp Hgb Conc 31.6 g/dL (32-36); Mean Corpuscular Hgb 29.8 pg (27.0-32.0); Mean Corpuscular Volume 94.3 fL (81-99); Mean Platelet Vol. 9.3 fl (6.2-12.0); Monocyte# 1.33 X10^3/uL; Monocyte% 11.9 % (0-10); NRBC Flagged by Analyzer 0 % (0-5); Neutrophil # 6.14 X10^3/uL (2.7-7.7); Neutrophil % 55.1 % (47-70); Platelet Count 330 K/mm3 (150-450); RBC Distribution Width CV 13.4 % (11.6-14.6); RBC Distribution Width SD 46.1 fl (35.1-43.9); Red Blood Count 4.53 M/mm3 (4.2-5.4); White Blood Count 11.1 K/mm3 (4.4-11.0)
[2020-04-04 01:32] LABS: Anion Gap 5 (5-15); BUN 26 mg/dL (7-18); BUN/Creat Ratio 22.6 RATIO (10-20); Chloride 106 mmol/L (98-107); Creatinine, Serum 1.15 mg/dL (0.55-1.02); EST Glomerular Filtration Rate 50 mL/min (>60); Est Glom Filt Rate - Afr Amer 61 mL/min (>60); Estimated Creatinine Clearance 41.55 ml/min; Glucose 106 mg/dL (74-106); Potassium 3.7 mmol/L (3.5-5.1); Sodium Level 142 mmol/L (136-145)
[2020-04-04] MEDS: Ondansetron 4 MG/2 ML Vial IV (01:44)
== END 2020-04-04 07:09 | disposition home or self-care (01) ==
PROVIDERS: Emergency Provider Emergency Medicine; PCP Family Medicine
DX: T44.7X1A Poisoning by beta-adrenoreceptor antagonists, accidental (unintentional), initial encounter (principal); I10 Essential (primary) hypertension; Z87.891 Personal history of nicotine dependence
CPT/HCPCS: 80048; 85025; 93005; 96374; 99283; J7030; A4216; J2405

== ENCOUNTER 2023-06-11 16:39 | Observation (INO) | payer MEDICARE, SELFPAY ==
[2023-06-11] VITALS (8 sets, daily range): BP systolic 99–175; BP diastolic 60–106; PULSE 41–60; RESP 13–18; TEMP 36.3–37; O2SAT 92–97; BMI 35.0; BMI 35.3
--- NOTE | 2023-06-11 17:42 | EKG12_ITS ---
Test Reason : DIZZY Blood Pressure : / mmHG Vent. Rate : 043 BPM Atrial Rate : 043 BPM P-R Int : 000 ms QRS Dur : 086 ms QT Int : 470 ms P-R-T Axes : 000 014 033 degrees QTc Int : 397 ms Critical Test Result: AV Block Marked sinus bradycardia with A-V dissociation and Junctional bradycardia with Sinus/atrial capture Abnormal ECG Confirmed by LAMONT ARREDONDO MD ([id number]), newspaper editor managing CHRISTINA SINGH ([id number]) on 06/13/2023 10:48:46 AM Referred By: Confirmed By:LAMONT ARREDONDO MD
[2023-06-11 17:48] LABS: Absolute Lymphocyte Count 2.55 X10^3/uL (0.83-4.51); Absolute Neutrophil Count 11.7 X10^3/uL (2.0-7.7); Basophil% 0.6 % (0-1); Eosinophils% 2.5 % (0-5); Hematocrit 49.1 % (37-47); Hemoglobin 15.3 g/dL (12.0-15.0); Lymphocyte # 2.55 X10^3/ul (0.83-4.51); Lymphocyte % 16.2 % (19-41); Mean Corp Hgb Conc 31.2 g/dL (32-36); Mean Corpuscular Hgb 29.4 pg (27.0-32.0); Mean Corpuscular Volume 94.2 fL (81-99); Mean Platelet Vol. 11.2 fl (6.2-12.0); Monocyte# 0.86 X10^3/uL; Monocyte% 5.5 % (0-10); NRBC Flagged by Analyzer 0 % (0-5); Neutrophil # 11.74 X10^3/uL (2.7-7.7); Neutrophil % 74.8 % (47-70); Platelet Count 384 K/mm3 (150-450); RBC Distribution Width CV 13.9 % (11.6-14.6); Red Blood Count 5.21 M/mm3 (4.2-5.4); White Blood Count 15.7 K/mm3 (4.4-11.0)
--- NOTE | 2023-06-11 17:50 | RAD_ITS ---
EXAM: XR CHEST, 1 VIEW CLINICAL INDICATION: hypertension TECHNIQUE: Frontal view of the chest. COMPARISON: 05/15/2017 FINDINGS: LUNGS AND PLEURAL SPACES: Unremarkable. No consolidation or edema. No pneumothorax. No effusion. HEART: Unremarkable. Cardiac silhouette not enlarged. MEDIASTINUM: Central airways and mediastinal contour are unremarkable. BONES/JOINTS: Unremarkable. No acute fracture. SOFT TISSUES: Unremarkable. RAD/Chest 1 View (Portable) IMPRESSION: No radiographic evidence of acute cardiopulmonary disease. Electronically Signed: Gatito Potts MD at 18:17 EDT ,
[2023-06-11 18:06] LABS: AST(SGOT) 32 U/L (15-37); Alanine Aminotransfer ALT/SGPT 48 U/L (13-56); Albumin, Serum 3.9 g/dL (3.2-5.0); Alkaline Phosphatase 109 U/L (45-117); Anion Gap 8 (5-15); BUN 31 mg/dL (7-18); BUN/Creat Ratio 23.7 RATIO (10-20); Calcium,Total 9.6 mg/dL (8.5-10.1); Chloride 104 mmol/L (98-107); Creatinine, Serum 1.31 mg/dL (0.55-1.02); EST Glomerular Filtration Rate 43 mL/min (>60); Est Glom Filt Rate - Afr Amer 52 mL/min (>60); Estimated Creatinine Clearance 46.35 ml/min; Globulin 4.5 g/dL (2.2-4.2); Glucose 172 mg/dL (74-106); Lipase 52 U/L (13-75); Potassium 4.3 mmol/L (3.5-5.1); Protein, Total 8.4 g/dL (6.4-8.2); Sodium Level 137 mmol/L (136-145); Troponin-I HS 4 pg/mL (3.0-54.0)
--- NOTE | 2023-06-11 18:31 | EKG12_ITS ---
Test Reason : REPEAT Blood Pressure : / mmHG Vent. Rate : 042 BPM Atrial Rate : 042 BPM P-R Int : 124 ms QRS Dur : 086 ms QT Int : 484 ms P-R-T Axes : 053 007 054 degrees QTc Int : 404 ms Marked sinus bradycardia Abnormal ECG Confirmed by LAMONT ARREDONDO MD ([id number]), online editor CHRISTINA SINGH ([id number]) on 06/13/2023 7:56:47 AM Referred By: Confirmed By:LAMONT ARREDONDO MD
--- NOTE | 2023-06-11 18:40 | EX.ED.DYSGE1 ---
HPI History of Present Illness Chief Complaint: Dizziness Informant: patient, spouse/S.O. and EMS Narrative Narrative: 67-year-old female presenting to the emergency room with near syncope. Patient states that she has had some difficult to manage hypertension and last week in addition to her metoprolol and her Norvasc she was started on some verapamil. States that a few hours after taking the verapamil she begins to feel poorly and takes her several hours before she is able to get up and do anything. Today she took the verapamil around 1130 about 4 hours later she [facility] herself at [email or web address] and acutely became diaphoretic nauseous and globally weak. Patient notes some epigastric discomfort. No vomiting or diarrhea. She denies any chest pain. No dyspnea. [facility] Medical History Hypertension Prediabetes Home Medications hydrochlorothiazide 25 mg tablet 25 mg PO DAILY 09/07/13 [History Last Taken 05/15/17] lansoprazole 30 mg capsule,delayed release (Prevacid) 30 mg PO DAILY 09/07/13 [History Last Taken 05/15/17] loratadine 10 mg tablet (Allergy Relief (loratadine)) 10 mg PO DAILY 09/07/13 [History Last Taken 05/15/17] metoprolol tartrate 50 mg tablet 50 mg PO BID 09/07/13 [History Last Taken 05/15/17] L.acidoph, paracasei,B. lactis 10 billion cell capsule 1 ea PO DAILY 04/04/20 [History Last Taken Unknown] Vitamin C 3 tab PO DAILY 04/04/20 [History Last Taken Unknown] Vitamin D3 1 tab PO DAILY 04/04/20 [History Last Taken Unknown] Allergy/AdvReac Type Severity Reaction Status Date / Time nifedipine Allergy Intermediate Rash Verified 06/11/23 17:33 NSAIDS (Non-Steroidal Allergy Intermediate Rash Verified 06/11/23 16:50 Anti-Inflamma ciprofloxacin HCl Allergy Swelling Verified 06/11/23 16:50 [From Cipro HC] hydrocortisone Allergy Swelling Verified 06/11/23 16:50 [From Cipro HC] Social History Smoking Status: Never smoker ROS ROS ED Constitutional Constitutional ED: Denies chills, fever(s) or weight loss Eyes Eyes: Denies change in vision or diplopia ENT ENT ED: Denies ear pain, rhinorrhea or sore throat Cardiovascular Cardiovascular: Reports palpitations and other Details: Lightheadedness diaphoresis ; Denies chest pain, orthopnea or racing heartbeat Respiratory/Chest Respiratory/Chest: Denies cough, dyspnea or orthopnea Gastrointestinal Gastrointestinal: Reports abdominal pain and nausea; Denies diarrhea or vomiting Genitourinary Genitourinary ED: Denies dysuria, hematuria or urinary frequency Musculoskeletal Musculoskeletal: Denies arthralgias or myalgias Integumentary Denies abscess or rash Neurologic Neurologic: Denies headache(s) or weakness Psychiatric Psychiatric: Denies anxiety, depression, suicidal ideation or suicidal thoughts Endocrine Endocrinology: Denies polydipsia, polyphagia or polyuria Allergic/Immunologic Allergic/Immunologic ED: Denies mouth swelling, tongue swelling or urticaria EXAM Physical Exam Const Vital Signs: 06/11/23 16:45 06/11/23 16:48 06/11/23 16:53 Temperature 97.8 F Temperature Source Oral Pulse Rate 56 L Pulse Rate [Lying] 51 L Pulse Rate [Sitting (for 1 minute prior to obtaining)] 51 L Pulse Rate [Standing (for 1 minute prior to obtaining)] 60 Respiratory Rate 18 Respiratory Effort Short of Breath Respiratory Pattern Normal Blood Pressure 120/60 Blood Pressure [Lying] 99/68 Blood Pressure [Sitting (for 1 minute prior to obtaining)] 109/71 Blood Pressure [Standing (for 1 minute prior to obtaining)] 108/76 Blood Pressure Mean 80 Blood Pressure Mean [Lying] 78 Blood Pressure Mean [Sitting (for 1 minute prior to obtaining)] 83 Blood Pressure Mean [Standing (for 1 minute prior to obtaining)] 86 Pulse Ox 95 Oxygen Delivery Method Room Air 06/11/23 17:31 Temperature Temperature Source Pulse Rate 48 L Pulse Rate [Lying] Pulse Rate [Sitting (for 1 minute prior to obtaining)] Pulse Rate [Standing (for 1 minute prior to obtaining)] Respiratory Rate 13 Respiratory Effort Respiratory Pattern Blood Pressure 107/86 H Blood Pressure [Lying] Blood Pressure [Sitting (for 1 minute prior to obtaining)] Blood Pressure [Standing (for 1 minute prior to obtaining)] Blood Pressure Mean 93 Blood Pressure Mean [Lying] Blood Pressure Mean [Sitting (for 1 minute prior to obtaining)] Blood Pressure Mean [Standing (for 1 minute prior to obtaining)] Pulse Ox 92 Oxygen Delivery Method Room Air MDM MDM MDM Narrative Medical decision making narrative: EKG shows a bradycardic rhythm at a rate of 43. I do not see definitive P waves before each QRS complex. This is significantly different from EKG dated 04 April 2020. I observed her on the monitor to have several printouts. Some show definitive P waves before the QRS complexes some I do not see any P waves and some appear to have P waves buried in the T QRS complexes. She is mentating normally and is not hypotensive at this time. Her initial troponin is normal. Lipase 52 white count slightly elevated 15.7. Hemoglobin 15.3 platelet count 384 sodium potassium within normal limits. Glucose 172 creatinine 1.31. My independent interpretation of the chest x-ray is no acute process.Morbid obesity I believe the patient should be admitted and medications held. I spoke with cardiology and they concurred the plan is admission. I will speak with the hospitalist History & Record Review Discussion w/independent historian: Patient Lab Data Attestation: I reviewed the patient's lab results. Labs: Laboratory Results - last 24 hr 06/11/23 16:30 WBC 15.7 H RBC 5.21 Hgb 15.3 H Hct 49.1 H MCV 94.2 MCH 29.4 MCHC 31.2 L RDW Std Deviation 48.0 H RDW Coeff of Brisa 13.9 Plt Count 384 MPV 11.2 Immature Gran % (Auto) 0.400 Neut % (Auto) 74.8 H Lymph % (Auto) 16.2 L Taylor % (Auto) 5.5 Eos % (Auto) 2.5 Baso % (Auto) 0.6 Absolute Neuts (auto) 11.7 H Absolute Lymphs (auto) 2.55 Nucleated RBC % 0 Sodium 137 Potassium 4.3 Chloride 104 Carbon Dioxide 25.0 Anion Gap 8 BUN 31 H Creatinine 1.31 H Estim Creat Clear Calc 46.35 Est GFR (MDRD) Af Amer 52 L Est GFR (MDRD) Non-Af 43 L BUN/Creatinine Ratio 23.7 H Glucose 172 H Calcium 9.6 Total Bilirubin 0.90 Direct Bilirubin 0.20 AST 32 ALT 48 Alkaline Phosphatase 109 Troponin I High Sens 4 Total Protein 8.4 H Albumin 3.9 Globulin 4.5 H Lipase 52 Radiography Diagnostic Testing: Clinical Impression(s) from Imaging Studies Chest X-Ray 06/11/23 17:50 IMPRESSION: No radiographic evidence of acute cardiopulmonary disease. Electronically Signed: Gatito Potts MD at 18:17 EDT , Management Discussion w/another healthcare provider: Hospitalist and Motorbike Courier (Cardiology ([place])) Discharge Plan Dx/Rx/DC Orders Clinical Impression: Bradycardia, Adverse drug interaction, Near syncope Disposition Disposition: Acute Care Hospital [facility]
[2023-06-11 18:59] LABS: Magnesium 2.1 mg/dL (1.6-2.6)
--- NOTE | 2023-06-11 18:59 | PCM.HP.STD ---
HPI - General General Date of Admission: 06/11/23 Date of Service: 06/11/23 Chief Complaint: Dizziness with Near Syncope and Low Heart Rate. HPI Narrative JAILENE DONAHUE, is a 67 F with a past medical history of obesity; with BMI of 35.1 this admission, pre-diabetes, depression, GERD, history of cholecystectomy, history of accidental overdose of metoprolol (2020) and poorly-controlled hypertension; on Losartan, Metoprolol, Verapamil who presents to [facility] ER complaining of dizziness, near syncope and low heart rate. Ms. Donahue reports her symptoms began a few days prior to admission when she was noted to have elevated blood pressure resistant to metoprolol and Norvasc along with hydrochlorothiazide. There was concern for possible dehydration similar to hydrochlorothiazide was stopped in favor of verapamil which she took around 11:30 AM today. Then about 4 hours later she was shopping at [employer] and became acutely diaphoretic, nauseous and globally weak with a near syncopal event. She also admits to associated epigastric discomfort but denies associated chest pain, shortness of breath, nausea, vomiting, diarrhea or other recent illness. In the ER she had an EKG that showed a bradycardic rhythm of 43 without definitive P waves before each QRS complex likely due to adverse drug reaction to combination of verapamil and metoprolol causing bradycardia arrhythmia with near syncopal event and she was then admitted to the CDU under observation status for a stay that is expected to be less than 48 hours. [facility] Medical History Arthritis Hypertension Prediabetes Home Medications hydrochlorothiazide 25 mg tablet 25 mg PO DAILY HTN 09/07/13 [History Last Taken 05/15/17] lansoprazole 30 mg capsule,delayed release (Prevacid) 30 mg PO DAILY GERD 09/07/13 [History Last Taken 05/15/17] loratadine 10 mg tablet (Allergy Relief (loratadine)) 10 mg PO DAILY 09/07/13 [History Last Taken 05/15/17] metoprolol tartrate 50 mg tablet 50 mg PO BID HEART RATE 09/07/13 [History Last Taken 05/15/17] Vitamin C 3 tab PO DAILY 04/04/20 [History Last Taken Unknown] Vitamin D3 1 tab PO DAILY 04/04/20 [History Last Taken Unknown] albuterol sulfate 90 mcg/actuation aerosol inhaler 2 puff inhalation Q4H PRN PRN shortness of breath or wheezing 06/11/23 [History Last Taken Unknown] escitalopram oxalate 10 mg tablet 10 mg PO DAILY 06/11/23 [History Last Taken Unknown] escitalopram oxalate 5 mg tablet (Lexapro) 10 mg PO DAILY ANXIETY 06/11/23 [History Last Taken Unknown] lorazepam 0.5 mg tablet 0.5 mg PO TID PRN PRN anxiety 06/11/23 [History Last Taken Unknown] losartan 100 mg tablet 100 mg PO DAILY 06/11/23 [History Last Taken Unknown] meloxicam 15 mg tablet 15 mg PO DAILY 06/11/23 [History Last Taken Unknown] pregabalin 25 mg capsule 25 mg PO BID 06/11/23 [History Last Taken Unknown] verapamil 240 mg tablet,extended release 240 mg PO DAILY 06/11/23 [History Last Taken Unknown] Allergy/AdvReac Type Severity Reaction Status Date / Time nifedipine Allergy Intermediate Rash Verified 06/11/23 20:54 NSAIDS (Non-Steroidal Allergy Intermediate Rash Verified 06/11/23 20:54 Anti-Inflamma ciprofloxacin HCl Allergy Swelling Verified 06/11/23 20:54 [From Cipro HC] hydrocortisone Allergy Swelling Verified 06/11/23 20:54 [From Cipro HC] Social History Smoking Status: Former smoker ROS ROS Narrative Review of systems: General: Patient denies fevers or chills. HENT: Denies headache, denies stuffy nose, denies sore throat EYES: Denies changes in vision or discharge from eyes. Resp: Denies cough, denies shortness of breath Cardiac: Patient admits to palpitations, lightheadedness and near syncopal event as per HPI. She denies chest pain. GI: Patient reported mild to moderate epigastric pain as per HPI. : Denies changes in urination Extremity: Denies swelling Musculoskeletal: Feels somewhat generally weak and unwell Neuro: Patient denies headache, paresthesias or focal neurologic deficits. Heme: Denies any bleeding or bruising Skin: Denies rashes Psychiatric: No complaints voiced related to uncontrolled depression or anxiety. Endocrine: No polyuria, polydipsia or polyphagia. The rest of the 14 point ROS was negative except for positives in HPI. Vital Signs Vital Signs Vital Signs: 06/11/23 16:45 06/11/23 16:48 06/11/23 16:53 Temperature 97.8 F Temperature Source Oral Pulse Rate 56 L Pulse Rate [Lying] 51 L Pulse Rate [Sitting (for 1 minute prior to obtaining)] 51 L Pulse Rate [Standing (for 1 minute prior to obtaining)] 60 Respiratory Rate 18 Respiratory Effort Short of Breath Respiratory Pattern Normal Blood Pressure 120/60 Blood Pressure [Lying] 99/68 Blood Pressure [Sitting (for 1 minute prior to obtaining)] 109/71 Blood Pressure [Standing (for 1 minute prior to obtaining)] 108/76 Blood Pressure Mean 80 Blood Pressure Mean [Lying] 78 Blood Pressure Mean [Sitting (for 1 minute prior to obtaining)] 83 Blood Pressure Mean [Standing (for 1 minute prior to obtaining)] 86 Pulse Ox 95 Oxygen Delivery Method Room Air 06/11/23 17:31 06/11/23 18:44 Temperature Temperature Source Pulse Rate 48 L 42 L Pulse Rate [Lying] Pulse Rate [Sitting (for 1 minute prior to obtaining)] Pulse Rate [Standing (for 1 minute prior to obtaining)] Respiratory Rate 13 16 Respiratory Effort Respiratory Pattern Blood Pressure 107/86 H 108/61 Blood Pressure [Lying] Blood Pressure [Sitting (for 1 minute prior to obtaining)] Blood Pressure [Standing (for 1 minute prior to obtaining)] Blood Pressure Mean 93 76 Blood Pressure Mean [Lying] Blood Pressure Mean [Sitting (for 1 minute prior to obtaining)] Blood Pressure Mean [Standing (for 1 minute prior to obtaining)] Pulse Ox 92 95 Oxygen Delivery Method Room Air Room Air Weight Weight: 210 lb 12.191 oz Body Mass Index (BMI) 35.0 Physical Exam Const alert, oriented x3, no apparent distress, average body habitus and healthy appearing General Appearance: cooperative HEENT normocephalic, head/scalp atraumatic, hearing grossly normal bilaterally and moist oral mucous membranes Eyes PERRL and EOMs intact bilaterally Neck no lymphadenopathy and supple Resp normal respiratory effort, no retractions, no use of accessory muscles and clear to auscultation bilaterally Cardio regular rate and regular rhythm Cardio Narrative: Patient grew bradycardic in the 40 to 50 bpm range. GI normal to inspection, nondistended, normoactive bowel sounds, soft to palpation, non-tender and non-distended Extremity normal to inspection and full ROM Skin Skin Narrative: Patient has no evidence of rash. Neuro oriented x3, CN's II-XII intact bilaterally, moves all extremities and no focal motor deficits Sensorium / Orientation: awake, alert, oriented to person, oriented to place and oriented to time Speech: speech normal Motor Exam: strength 5/5 throughout Psych affect normal Results Medical Records Data Attestation: I reviewed the patient's medical records Lab / Micro Data Attestation: I reviewed the patient's lab results. 06/11/23 16:30 06/11/23 16:30 Labs: Laboratory Results - last 24 hr 06/11/23 06:30: Magnesium 2.1 06/11/23 16:30: WBC 15.7 H, RBC 5.21, Hgb 15.3 H, Hct 49.1 H, MCV 94.2, MCH 29.4, MCHC 31.2 L, RDW Std Deviation 48.0 H, RDW Coeff of Brisa 13.9, Plt Count 384, MPV 11.2, Immature Gran % (Auto) 0.400, Neut % (Auto) 74.8 H, Lymph % (Auto) 16.2 L, [place] % (Auto) 5.5, Eos % (Auto) 2.5, Baso % (Auto) 0.6, Absolute Neuts (auto) 11.7 H, Absolute Lymphs (auto) 2.55, Nucleated RBC % 0, Sodium 137, Potassium 4.3, Chloride 104, Carbon Dioxide 25.0, Anion Gap 8, BUN 31 H, Creatinine 1.31 H, Estim Creat Clear Calc 46.35, Est GFR (MDRD) Af Amer 52 L, Est GFR (MDRD) Non-Af 43 L, BUN/Creatinine Ratio 23.7 H, Glucose 172 H, Calcium 9.6, Total Bilirubin 0.90, Direct Bilirubin 0.20, AST 32, ALT 48, Alkaline Phosphatase 109, Troponin I High Sens 4, Total Protein 8.4 H, Albumin 3.9, Globulin 4.5 H, Lipase 52 Imaging Radiology Impression Chest X-Ray 06/11/23 17:50 IMPRESSION: No radiographic evidence of acute cardiopulmonary disease. Electronically Signed: Gatito Potts MD at 18:17 EDT , Assessment & Plan Assessment/Plan (1) Near syncope: (2) Adverse drug interaction: QUALIFIERS: Encounter type: initial encounter Qualified Code(s): T50.905A - Adverse effect of unspecified drugs, medicaments and biological substances, initial encounter (3) Bradycardia: (4) Hypertension: QUALIFIERS: Hypertension type: resistant hypertension Qualified Code(s): I1A.0 - Resistant hypertension (5) Prediabetes: PLAN: Plan 1. Near syncopal event due to severe bradycardia in the 30 to 40 bpm range - Admit to CDU under observation status. Check echocardiogram to evaluate LVEF. Give Calcium Gluconate IV once and give prn IV Glucagon for symptomatic bradycardia. Otherwise, we will volume resuscitate, treat supportively and monitor for improvement. Finally, because ER physician spoke to Dr. Sarabia of [facility] about this patient consultation will be placed for the a.m. on rounds for further recommendations with help appreciated in advance. 2. Adverse drug reaction to combination of metoprolol and recently added verapamil causing #1 - Patient warned not to take these 2 agents in combination again. 3. Poorly controlled hypertension; on Losartan, Metoprolol and HCTZ resulting in recent change in her antihypertensive regimen complicating #1 & #2 - Patient had a Renal Artery U/S ordered as an outpatient for later this week but in light of these ongoing issues with her blood pressure we will check one this admission to evaluate for possible secondary hypertension due to SYBIL. 4. Obesity; with BMI of 35.1 this admission - Weight loss will be recommended. Check TSH in light of this and #1. 4. Pre-diabetes - Check lipid profile and hemoglobin A1c to assess as patient has become fully diabetic. 5. Depression - Resume escitalopram as previous. Give Xanax as needed for breakthrough symptoms. 6. History of accidental overdose of metoprolol (2020) 7. GERD - Continue PPI. 8. History of cholecystectomy - Noted. 9. DVT prophylaxis - Lovenox 40 mg sq daily. Total time: Approximately 45 minutes. Charges/Coding Visit Charges OBSV E&M: 51675 Observ/hosp same date L1
--- NOTE | 2023-06-11 19:31 | ECHOD_ITS ---
Reason For Study: SYNCOPE Procedure This was a 2D Doppler, Color Flow transthoracic echocardiogram. Exam performed portable in patient room. Left Ventricle Normal LV size. Mild concentric left ventricular hypertrophy. Left ventricular systolic function is normal. The left ventricular ejection fraction is 60 %. Stage 1 diastolic dysfunction. No regional wall motion abnormalities noted. Right Ventricle Normal RV size. Normal systolic function. Atria Normal left atrium. Normal right atrium. Aneurysmal atrial septum. Bubble contrast study negative for right to left interatrial shunt. Mitral Valve Normal mitral valve. Tricuspid Valve Normal tricuspid valve. Aortic Valve Normal aortic valve. Trisinus/trileaflet aortic valve. Pulmonic Valve Normal pulmonic valve. Great Vessels Normal aortic root. The pulmonary artery is normal size. Normal inferior vena cava. Pericardium/Pleural No pericardial effusion. Medication Performed a rapid injection of agitated mix of 9 cc saline and 1cc air to assess for atrial septal defect. MMode/2D Measurements & Calculations LVIDd: 4.0 cm IVSd: 1.3 cm LAV(MOD-bp): 56.3 ml LVIDs: 3.1 cm LVPWd: 1.2 cm RVDd: 3.5 cm FS: 23.4 % LAV(MOD-bp) Indexed: 27.9 ml/m2 LAV(MOD-sp2): 54.9 ml LAV(MOD-sp4): 55.3 ml SV(MOD-sp4): 54.6 ml SV(sp4-el): 58.0 ml LVAd ap4: 26.9 cm2 LVLd ap4: 7.7 cm EDV(MOD-sp4): 76.9 ml EDV(sp4-el): 79.6 ml LVAs ap4: 12.6 cm2 LVLs ap4: 6.2 cm ESV(MOD-sp4): 22.3 ml ESV(sp4-el): 21.6 ml EF(MOD-sp4): 71.1 % EF(sp4-el): 72.9 % LA dimension(2D): 3.1 cm LA A4 area: 18.9 cm2 RA A4 area: 18.0 cm2 TAPSE: 2.1 cm Time Measurements MV dec time: 0.18 sec Doppler Measurements & Calculations MV E max erasmo: 62.0 cm/sec Lat Peak E' Erasmo: 7.6 cm/sec Med Peak E' Erasmo: 4.9 cm/sec MV A max erasmo: 77.6 cm/sec E/E' lat: 8.1 E/E' med: 12.7 MV E/A: 0.80 MV V2 max: 81.0 cm/sec MV dec slope: 405.2 cm/sec2 Ao V2 max: 157.3 cm/sec MV max P.6 mmHg Ao max P.9 mmHg MV V2 mean: 46.1 cm/sec Ao V2 mean: 106.0 cm/sec MV mean P.0 mmHg Ao mean P.2 mmHg MV V2 VTI: 25.8 cm Ao V2 VTI: 34.8 cm AV (velocity ratio): 0.83 LV V1 max: 125.3 cm/sec LV V1 max P.3 mmHg LV V1 mean P.6 mmHg LV V1 mean: 89.5 cm/sec LV V1 VTI: 28.9 cm ECHO/Echo Complete Interpretation Summary Normal LV size. Mild concentric left ventricular hypertrophy. The left ventricular ejection fraction is 60 %. Left ventricular systolic function is normal. Stage 1 diastolic dysfunction. Aneurysmal atrial septum. Bubble contrast study negative for right to left interatrial shunt. Ordering Physician: Hesham Murphy Referring Physician: MARY ANN DAVILA Performed By: Nena Olivares RCS
[2023-06-11 20:34] LABS: Hemoglobin A1c 5.8 % (3.8-5.6)
[2023-06-11] MEDS: Pregabalin 25 MG Capsule PO (21:20)
[2023-06-11] MEDS: 0.9% Normal Saline (1000mL) 1,000 ML 50 ML IV (21:20)
[2023-06-11] MEDS: 0.9% Saline Lock 10 ML Syringe IV ×2 (21:20→21:50)
[2023-06-11] MEDS: Calcium Gluconate 1 GM/10 ML Vial IVP (21:50)
[2023-06-12 02:25] VITALS: BMI 35.8
[2023-06-12 03:15] VITALS: BP 129/87; PULSE 63; RESP 18; TEMP 35.9; O2SAT 99
--- NOTE | 2023-06-12 03:17 | RDU_ITS ---
Reason For Study: Hypertension Right Renal Artery Left Renal Artery Right renal artery ostium 72.1/18.2 Left renal artery ostium 165.9/45.2 RSV/EDV. PSV/EDV. Right renal artery proximal Left renal artery proximal PSV/EDV 107.6/24.8 PSV/EDV. 126.4/40.8 . Right renal artery mid 86.9/21.2 Left renal artery mid 103.4/32.1 PSV/EDV. PSV/EDV . Right renal artery distal 61.4/19.4 Left renal artery distal 90.6/24.8 PSV/EDV. PSV/EDV. Right RAR 1.66. Left RAR 2.56. Right Renal Parenchyma Left Renal Parenchyma Upper Pole Medula 20/5.9 PSV/EDV. Left upper pole medulla 22.5/9.7 Right upper pole medulla EDR 0.3 . PSV/EDV . Right upper pole medulla R.I. Left upper pole medulla EDR 0.4 . 0.71 . Left upper pole medulla R.I. 0.57 . Upper Jason Cortx 16.3/6.5 PSV/EDV. UP Cortex 16.3/5.9 PSV/EDV. Right upper pole cortex EDR 0.4 . Left upper pole cortex EDR 0.4 . Right upper pole cortex R.I. 0.60 . Left upper pole cortex R.I. 0.64 . Right lower Pole medulla 18.8/5.3 Left lower Pole medulla 23.1/7.1 PSV/EDV . PSV/EDV . Right lower pole medulla EDR 0.3 . Left lower pole medulla EDR 0.3 . Right lower pole medulla R.I. Left lower pole medulla R.I. 0.69 . 0.72 . Lower Pole Cortx 14.5/5.3 PSV/EDV. Lower Pole Cortex 16.9/5.9 PSV/EDV. Left lower pole cortex EDR 0.4 . Right lower pole cortex EDR 0.3 . Left lower pole cortex R.I. 0.64 . Right lower pole cortex R.I. 0.65 . Left Renal Hilar Right Renal Hilar LT Hilar avg 65.8/20.4 PSV/EDV . Right Hilar avg 37.6/14.2 PSV/EDV. Left hilar acceleration time 40 Right hilar acceleration time 70 m/sec. m/sec. Left Renal Dimensions Right Renal Dimensions Left kidney size 9.82 cm . Right kidney size 9.89 cm . Left cortical dimension 1.18 cm . Right cortical dimension 1.36 cm . Aorta Proximal abdominal aorta 1.85 x 1.92 cm . Proximal abdominal aorta peak systolic velocity is 64.8 cm/sec . Distal abdominal aorta 1.60 x 1.60 cm . Distal abdominal aorta peak systolic velocity is 61 cm/sec . VL/Renal Artery Duplex Ultrasound Interpretation Summary Maximal aortic diameter is approximately at 1.85 x 1.92 cm diameter which is no rmal. Normal aortic flow velocity noted. Less than 60% stenosis bilateral renal arteries Right renal length maintained at 9.89 cm. Left renal length maintained at 9.82 cm Ordering Physician: Hesham Murphy Referring Physician: Rubén Rendon Performed By: Iman Jay RVT
[2023-06-12 07:23] LABS: Absolute Lymphocyte Count 1.58 X10^3/uL (0.83-4.51); Absolute Neutrophil Count 5.8 X10^3/uL (2.0-7.7); Basophil# 0.03 X10^3/uL; Basophil% 0.4 % (0-1); Eosinophil# 0.24 X10^3/uL; Eosinophils% 2.9 % (0-5); Hematocrit 40.5 % (37-47); Hemoglobin 13.1 g/dL (12.0-15.0); Lymphocyte # 1.58 X10^3/ul (0.83-4.51); Lymphocyte % 18.9 % (19-41); Mean Corp Hgb Conc 32.3 g/dL (32-36); Mean Corpuscular Hgb 30.2 pg (27.0-32.0); Mean Corpuscular Volume 93.3 fL (81-99); Mean Platelet Vol. 9.7 fl (6.2-12.0); Monocyte# 0.71 X10^3/uL; Monocyte% 8.5 % (0-10); NRBC Flagged by Analyzer 0 % (0-5); Neutrophil # 5.78 X10^3/uL (2.7-7.7); Neutrophil % 69.1 % (47-70); Platelet Count 276 K/mm3 (150-450); RBC Distribution Width CV 13.7 % (11.6-14.6); RBC Distribution Width SD 46.8 fl (35.1-43.9); Red Blood Count 4.34 M/mm3 (4.2-5.4); White Blood Count 8.4 K/mm3 (4.4-11.0)
[2023-06-12 07:53] LABS: ALB/GLOB Ratio 0.9 RATIO (0.9-2.4); AST(SGOT) 18 U/L (15-37); Alanine Aminotransfer ALT/SGPT 36 U/L (13-56); Albumin, Serum 3.2 g/dL (3.2-5.0); Alkaline Phosphatase 83 U/L (45-117); Anion Gap 5 (5-15); BUN 25 mg/dL (7-18); BUN/Creat Ratio 28.2 RATIO (10-20); Calcium,Total 9.1 mg/dL (8.5-10.1); Chloride 108 mmol/L (98-107); Creatinine, Serum 0.88 mg/dL (0.55-1.02); EST Glomerular Filtration Rate 67 mL/min (>60); Est Glom Filt Rate - Afr Amer 81 mL/min (>60); Estimated Creatinine Clearance 67.34 ml/min; Globulin 3.4 g/dL (2.2-4.2); Glucose 104 mg/dL (74-106); Magnesium 1.9 mg/dL (1.6-2.6); Phosphorus 4.2 mg/dL (2.5-4.9); Potassium 4.4 mmol/L (3.5-5.1); Protein, Total 6.6 g/dL (6.4-8.2); Sodium Level 141 mmol/L (136-145); Thyroid Stim Hormone (TSH) 2.14 uIU/mL (0.358-3.74)
[2023-06-12 08:09] VITALS: O2SAT 96
[2023-06-12 08:53] VITALS: BP 159/77; PULSE 66; RESP 14; TEMP 36.7; O2SAT 96
[2023-06-12] MEDS: Loratadine 10 MG Tablet PO (09:02)
[2023-06-12] MEDS: Losartan Potassium 50 MG Tablet PO (09:02)
[2023-06-12] MEDS: Enoxaparin 40 MG/0.4 ML Syringe SC (09:02)
[2023-06-12] MEDS: Meloxicam 15 MG Tablet PO (09:02)
[2023-06-12] MEDS: Escitalopram Oxalate 10 MG Tablet PO (09:02)
[2023-06-12] MEDS: Pantoprazole Sodium 40 MG Tablet PO (09:02)
[2023-06-12] MEDS: Pregabalin 25 MG Capsule PO (09:29)
--- NOTE | 2023-06-12 09:36 | CON.PCM.CA_ITS ---
Assessment & Plan Assessment/Plan (1) Hypertension: QUALIFIERS: Hypertension type: resistant hypertension Qualified Code(s): I1A.0 - Resistant hypertension PLAN: She does appear to have uncontrolled hypertension. I suspect that this is essential and not secondary to any renovascular disease. I would however recommend that we optimize her blood pressure medication as follows: Metoprolol 50 mg twice a day. Amlodipine 10 mg a day. Losartan 100 mg a day. She should obtain an echocardiogram to look at her wall thickness. It appears that she has had a renal ultrasound and this will be reviewed. (2) Bradycardia: PLAN: Her bradycardic spell was most likely related to the combination of the metoprolol and the verapamil. The latter has been discontinued. I do not expect that this should persist. If her heart rate is stable by this evening she can be discontinued for outpatient follow-up at the [facility] Thank you for allowing me to participate in the care of your patient. Please don't hesitate to call if any issues arise. HPI Consult Data Date of Consult: 06/12/23 HPI Narrative HPI Narrative: JAILENE DONAHUE, is a 67 F who presents to the emergency room after patient felt dizzy after medication changes noted for her chronic hypertension. She t ells me that she has been having medication changes over the last few weeks for uncontrolled hypertension. She had been on metoprolol, and verapamil was added as well as hydrochlorothiazide and she had some dizziness. She had also previously been on nifedipine. She presented to the emergency room she was noted to be in a junctional bradycardia and she was admitted for further cardiology management. She denies any chest pain or paroxysmal nocturnal dyspnea or pedal edema no neck arm or jaw discomfort suggest angina. She has been compliant with her medications. Her EKG from the emergency room was reviewed and demonstrated a sinus bradycardia. [facility] Medical History (Updated 06/12/23 @ 03:51 by Sadaf Villarreal) Aneurysm of heart (wall) Arthritis Hypertension Lumbar spondylosis Lumbosacral radiculopathy at L5 Prediabetes Spinal stenosis of lumbar region Home Medications hydrochlorothiazide 25 mg tablet 25 mg PO DAILY HTN 09/07/13 [History Last Taken 05/15/17] lansoprazole 30 mg capsule,delayed release (Prevacid) 30 mg PO DAILY GERD 09/07/13 [History Last Taken 05/15/17] loratadine 10 mg tablet (Allergy Relief (loratadine)) 10 mg PO DAILY 09/07/13 [History Last Taken 05/15/17] metoprolol tartrate 50 mg tablet 50 mg PO BID HEART RATE 09/07/13 [History Last Taken 05/15/17] Vitamin C 3 tab PO DAILY 04/04/20 [History Last Taken Unknown] Vitamin D3 1 tab PO DAILY 04/04/20 [History Last Taken Unknown] albuterol sulfate 90 mcg/actuation aerosol inhaler 2 puff inhalation Q4H PRN PRN shortness of breath or wheezing 06/11/23 [History Last Taken Unknown] escitalopram oxalate 10 mg tablet 10 mg PO DAILY 06/11/23 [History Last Taken Unknown] escitalopram oxalate 5 mg tablet (Lexapro) 10 mg PO DAILY ANXIETY 06/11/23 [History Last Taken Unknown] lorazepam 0.5 mg tablet 0.5 mg PO TID PRN PRN anxiety 06/11/23 [History Last Taken Unknown] losartan 100 mg tablet 100 mg PO DAILY 06/11/23 [History Last Taken Unknown] meloxicam 15 mg tablet 15 mg PO DAILY 06/11/23 [History Last Taken Unknown] pregabalin 25 mg capsule 25 mg PO BID 06/11/23 [History Last Taken Unknown] verapamil 240 mg tablet,extended release 240 mg PO DAILY 06/11/23 [History Last Taken Unknown] fluticasone propionate 50 mcg/actuation nasal spray,suspension (Allergy Relief (fluticasone)) 1 spray intranasal DAILY PRN allergy symptoms 06/12/23 [History Last Taken Unknown] Allergy/AdvReac Type Severity Reaction Status Date / Time nifedipine Allergy Intermediate Rash Verified 06/11/23 20:54 NSAIDS (Non-Steroidal Allergy Intermediate Rash Verified 06/11/23 20:54 Anti-Inflamma ciprofloxacin HCl Allergy Swelling Verified 06/11/23 20:54 [From Cipro HC] hydrocortisone Allergy Swelling Verified 06/11/23 20:54 [From Cipro HC] Social History Smoking Status: Former smoker ROS Constitutional Constitutional: Denies fever(s) or weight loss Eyes Eyes: Reports systems reviewed and no addt'l complaints, except as documented ENT HEENT: Reports systems reviewed and no addt'l complaints, except as documented Cardiovascular Cardiovascular: Reports lightheadedness; Denies chest pain at rest, chest pain with activity, dyspnea at rest, dyspnea on exertion, edema, palpitations or paroxysmal nocturnal dyspnea Respiratory/Chest Respiratory/Chest: Denies dyspnea on exertion, productive cough, shortness of breath at rest or shortness of breath with exertion Gastrointestinal Gastrointestinal: Denies change in bowel habits, nausea, vomiting or weight changes Genitourinary Genitourinary: Denies difficulty urinating Musculoskeletal Musculoskeletal: Denies joint stiffness or muscle weakness Integumentary Integumentary: Denies lesions Neurologic Neurologic: Denies dizziness or syncope Psychiatric Psychiatric: Denies anxiety Endocrine Endocrinology: Denies excessive sweating or fatigue Hematologic/Lymphatic Hematologic/Lymphatic: Denies anemia Allergic/Immunologic Allergic/Immunologic: Denies seasonal rhinorrhea Physical Exam Const alert, oriented x3 and no apparent distress General Appearance: cooperative HEENT hearing grossly normal bilaterally Head and Scalp: atraumatic Eyes EOMs intact bilaterally Neck General: normal visual inspection Chest inspection of chest normal and palpation of chest normal Resp normal respiratory effort Auscultation: clear to auscultation bilaterally Cardio regular rate, regular rhythm, S1 normal heart sound and S2 normal heart sound Jugular Venous Distention: JVD GI normal to inspection, nondistended, normoactive bowel sounds Extremity normal capillary refill and no pedal edema Peripheral Pulses: Yes pulses 2+ throughout and femoral pulses present Skin no rashes or lesions noted Neuro oriented x3 and CN's II-XII intact bilaterally Psych Appearance: grossly normal and appropriate Risk Stratification Risk Stratification Applicable: No Objective Data Vital Signs: Vital Signs Temp Pulse Resp BP Pulse Ox O2 Del Method 98.1 F 66 14 159/77 H 96 Room Air 06/12/23 08:53 06/12/23 08:53 06/12/23 08:53 06/12/23 08:53 06/12/23 08:53 06/12/23 08:53 Oxygen Delivery Method Room Air Weight: 208 lb 12.444 oz Body Mass Index (BMI) 35.8 Intake & Output: Intake and Output for Last 24 Hours 06/10/23 06/11/23 06/12/23 23:59 23:59 23:59 Intake Total 100 / 580 1088.33 / 1088.33 Balance 100 / 580 1088.33 / 1088.33 Lab / Micro Data 06/12/23 06:28 06/12/23 06:28 Labs: Laboratory Results - last 24 hr 06/11/23 06:30: Magnesium 2.1 06/11/23 16:30: WBC 15.7 H, RBC 5.21, Hgb 15.3 H, Hct 49.1 H, MCV 94.2, MCH 29.4, MCHC 31.2 L, RDW Std Deviation 48.0 H, RDW Coeff of Brisa 13.9, Plt Count 384, MPV 11.2, Immature Gran % (Auto) 0.400, Neut % (Auto) 74.8 H, Lymph % (Auto) 16.2 L, [place] % (Auto) 5.5, Eos % (Auto) 2.5, Baso % (Auto) 0.6, Absolute Neuts (auto) 11.7 H, Absolute Lymphs (auto) 2.55, Nucleated RBC % 0, Sodium 137, Potassium 4.3, Chloride 104, Carbon Dioxide 25.0, Anion Gap 8, BUN 31 H, Creatinine 1.31 H, Estim Creat Clear Calc 46.35, Est GFR (MDRD) Af Amer 52 L, Est GFR (MDRD) Non-Af 43 L, BUN/Creatinine Ratio 23.7 H, Glucose 172 H, Hemoglob in A1c 5.8 H, Calcium 9.6, Total Bilirubin 0.90, Direct Bilirubin 0.20, AST 32, ALT 48, Alkaline Phosphatase 109, Troponin I High Sens 4, Total Protein 8.4 H, Albumin 3.9, Globulin 4.5 H, Lipase 52 06/12/23 06:28: WBC 8.4, RBC 4.34, Hgb 13.1, Hct 40.5, MCV 93.3, MCH 30.2, MCHC 32.3, RDW Std Deviation 46.8 H, RDW Coeff of Brisa 13.7, Plt Count 276, MPV 9.7, Immature Gran % (Auto) 0.200, Neut % (Auto) 69.1, Lymph % (Auto) 18.9 L, [place] % (Auto) 8.5, Eos % (Auto) 2.9, Baso % (Auto) 0.4, Absolute Neuts (auto) 5.8, Absolute Lymphs (auto) 1.58, Nucleated RBC % 0, Sodium 141, Potassium 4.4, Chloride 108 H, Carbon Dioxide 28.0, Anion Gap 5, BUN 25 H, Creatinine 0.88, Estim Creat Clear Calc 67.34, Est GFR (MDRD) Af Amer 81, Est GFR (MDRD) Non-Af 67, BUN/Creatinine Ratio 28.2 H, Glucose 104, Calcium 9.1, Phosphorus 4.2, Magnesium 1.9, Total Bilirubin 0.80, AST 18, ALT 36, Alkaline Phosphatase 83, Total Protein 6.6, Albumin 3.2, Globulin 3.4, Albumin/Globulin Ratio 0.9, TSH 2.14 Cardiology Labs/Tests 06/11/23 06:30: Magnesium 2.1 06/11/23 16:30: WBC 15.7 H, RBC 5.21, Hgb 15.3 H, Hct 49.1 H, MCV 94.2, MCH 29.4, MCHC 31.2 L, Plt Count 384, MPV 11.2, Immature Gran % (Auto) 0.400, Neut % (Auto) 74.8 H, Lymph % (Auto) 16.2 L, [place] % (Auto) 5.5, Eos % (Auto) 2.5, Baso % (Auto) 0.6, Absolute Neuts (auto) 11.7 H, Nucleated RBC % 0, Sodium 137, Potassium 4.3, Chloride 104, Carbon Dioxide 25.0, Anion Gap 8, BUN 31 H, Creatinine 1.31 H, Est GFR (MDRD) Af Amer 52 L, Est GFR (MDRD) Non-Af 43 L, BUN/Creatinine Ratio 23.7 H, Glucose 172 H, Hemoglobin A1c 5.8 H, Calcium 9.6, Total Bilirubin 0.90, Direct Bilirubin 0.20 06/12/23 06:28: WBC 8.4, RBC 4.34, Hgb 13.1, Hct 40.5, MCV 93.3, MCH 30.2, MCHC 32.3, Plt Count 276, MPV 9.7, Immature Gran % (Auto) 0.200, Neut % (Auto) 69.1, Lymph % (Auto) 18.9 L, [place] % (Auto) 8.5, Eos % (Auto) 2.9, Baso % (Auto) 0.4, Absolute Neuts (auto) 5.8, Nucleated RBC % 0, Sodium 141, Potassium 4.4, Chloride 108 H, Carbon Dioxide 28.0, Anion Gap 5, BUN 25 H, Creatinine 0.88, Est GFR (MDRD) Af Amer 81, Est GFR (MDRD) Non-Af 67, BUN/Creatinine Ratio 28.2 H, Glucose 104, Calcium 9.1, Phosphorus 4.2, Magnesium 1.9, Total Bilirubin 0.80 Rhythm: EKG: ECHO: Stress Test: Cardiac Cath: PCI: CT Surgery: Holter monitor: EPS: PPM: CXR: Chest CT Scan: Radiography Diagnostic Testing: Radiology Impression Chest X-Ray 06/11/23 17:50 IMPRESSION: No radiographic evidence of acute cardiopulmonary disease. Electronically Signed: Gatito Potts MD at 18:17 EDT ,
[2023-06-12 12:29] VITALS: BP 158/81; PULSE 77; RESP 18; TEMP 36.6; O2SAT 92
[2023-06-12] MEDS: Fluticasone 0.05% 1 SPRAY NASAL.SRY 2 SPRAY NASAL (12:32)
[2023-06-12 12:34] VITALS: BP 158/81; PULSE 77
[2023-06-12] MEDS: amLODIPine 10 MG Tablet PO (12:34)
[2023-06-12] MEDS: Metoprolol Tartrate 50 MG Tablet PO (12:34)
[2023-06-12 15:41] VITALS: BP 139/92; PULSE 66; RESP 14; TEMP 36.6; O2SAT 95
--- NOTE | 2023-06-12 15:43 | PCM.DC.SUM ---
Providers Date of Admission: 06/11/23 Date of Discharge: 06/12/23 Primary Care Physician: Dr. Rubén Davila MD Consultations 06/11/23 20:46 Consult: Cardiology Routine Consulting Provider: Jose Alfredo Sarabia Reason for Consult: Near syncope with severe bradycardia due to adverse drug interaction EMERGENT Consult: No MD Notified: Yes Date Notified: 06/11/23 Time Notified: 07:00 Method of Notification: Text Method of Consult:: In-Person Reason For Visit: NEAR SYNCOPAL EVENT DUE TO SEVERE BRADYCARDIA CAUS Diagnosis Discharge Diagnosis (1) Hypertension: Status: Chronic Code(s): I10 - Essential (primary) hypertension Qualifiers: Hypertension type: resistant hypertension Qualified Code(s): I1A.0 - Resistant hypertension (2) Bradycardia: Status: Acute Code(s): R00.1 - Bradycardia, unspecified Medications at Discharge Home Medications lansoprazole 30 mg capsule,delayed release (Prevacid) 30 mg PO DAILY GERD 09/07/13 loratadine 10 mg tablet (Allergy Relief (loratadine)) 10 mg PO DAILY 09/07/13 metoprolol tartrate 50 mg tablet 50 mg PO BID HEART RATE 09/07/13 Vitamin C 3 tab PO DAILY 04/04/20 Vitamin D3 1 tab PO DAILY 04/04/20 albuterol sulfate 90 mcg/actuation aerosol inhaler 2 puff inhalation Q4H PRN PRN shortness of breath or wheezing 06/11/23 escitalopram oxalate 10 mg tablet 10 mg PO DAILY 06/11/23 escitalopram oxalate 5 mg tablet (Lexapro) 10 mg PO DAILY ANXIETY 06/11/23 lorazepam 0.5 mg tablet 0.5 mg PO TID PRN PRN anxiety 06/11/23 losartan 100 mg tablet 100 mg PO DAILY 06/11/23 meloxicam 15 mg tablet 15 mg PO DAILY 06/11/23 pregabalin 25 mg capsule 25 mg PO BID 06/11/23 amlodipine 10 mg tablet 10 mg PO DAILY #30 tabs 06/12/23 fluticasone propionate 50 mcg/actuation nasal spray,suspension (Allergy Relief (fluticasone)) 1 spray intranasal DAILY PRN allergy symptoms 06/12/23 losartan 100 mg tablet 100 mg PO DAILY #30 tabs 06/12/23 Hospital Course Operations None Procedures 2-D Echocardiogram Summary of Care Provided Minutes Spent on Discharge: 45 Hospital Course: Patient is a 67-year-old female with a past medical history as outlined was admitted through the ED on 06/11/2023 on account of complaint of dizziness, near syncope and the low heart rate. His symptoms began a few days prior to admission. She had been having elevated blood pressure which was resistant to metoprolol and Norvasc as well as hydrochlorothiazide. Her hydrochlorothiazide has been discontinued and she had been started on verapamil by her physician. On the day of admission she was shopping in [employer] and subsequently became very nauseous and nearly passed out. She felt very weak and nearly passed out. In the ED EKG showed bradycardia with heart rate of 43. She was admitted and managed for near syncope due to bradycardia which is likely a combination of the verapamil and metoprolol. She was hydrated with IV fluids and cardiology was consulted. Medications were adjusted. Verapamil and hydrochlorothiazide were discontinued. She was placed on p.o. metoprolol as well as amlodipine and lisinopril. She had 2D echo showed EF of 60% with mild concentric left ventricular hypertrophy and normal left ventricular systolic function as well as stage I diastolic dysfunction. She had an aneurysmal atrial septum and bubble study was negative for any [id number] interatrial shunt. Patient remained stable and did well. She had a renal artery duplex which showed less than 60% stenosis of the renal arteries bilaterally. Patient remained stable and felt better. She remained stable and was discharged home on 06/12/2023. She is to follow up with her PCP and cardiology within 1-2 weeks. Patient seen and examined prior to discharge. He had no active complaints and had an uneventful night. Review of systems was otherwise negative. Labs and vitals reviewed. Home meds reviewed and reconciled. Physical Exam Const alert, oriented x3, no apparent distress and average body habitus General Appearance: cooperative and comfortable Orientation / Consciousness: awake Exam Limitations: no limitations HEENT normocephalic, head/scalp atraumatic, hearing grossly normal bilaterally and moist oral mucous membranes Eyes PERRL, EOMs intact bilaterally and conjunctivae normal Neck no lymphadenopathy and supple Resp normal respiratory effort, no retractions, no use of accessory muscles and clear to auscultation bilaterally Cardio regular rate, regular rhythm, S1 normal heart sound, S2 normal heart sound and no murmurs GI normal to inspection, nondistended, normoactive bowel sounds, soft to palpation and non-tender Extremity normal to inspection, full ROM and no clubbing, cyanosis or edema Skin no rashes or lesions noted Neuro oriented x3, CN's II-XII intact bilaterally, moves all extremities and no focal motor deficits Sensorium / Orientation: awake and alert Motor Exam: strength 5/5 throughout Psych affect normal Weight / BMI Weight Weight: 208 lb 12.444 oz Body Mass Index (BMI) 35.8 ABG / Lab / Microbiology Data 06/12/23 06:28 06/12/23 06:28 Laboratory: Laboratory Results - last 24 hr 06/11/23 06:30: Magnesium 2.1 06/11/23 16:30: WBC 15.7 H, RBC 5.21, Hgb 15.3 H, Hct 49.1 H, MCV 94.2, MCH 29.4, MCHC 31.2 L, RDW Std Deviation 48.0 H, RDW Coeff of Brisa 13.9, Plt Count 384, MPV 11.2, Immature Gran % (Auto) 0.400, Neut % (Auto) 74.8 H, Lymph % (Auto) 16.2 L, [place] % (Auto) 5.5, Eos % (Auto) 2.5, Baso % (Auto) 0.6, Absolute Neuts (auto) 11.7 H, Absolute Lymphs (auto) 2.55, Nucleated RBC % 0, Sodium 137, Potassium 4.3, Chloride 104, Carbon Dioxide 25.0, Anion Gap 8, BUN 31 H, Creatinine 1.31 H, Estim Creat Clear Calc 46.35, Est GFR (MDRD) Af Amer 52 L, Est GFR (MDRD) Non-Af 43 L, BUN/Creatinine Ratio 23.7 H, Glucose 172 H, Hemoglobin A1c 5.8 H, Calcium 9.6, Total Bilirubin 0.90, Direct Bilirubin 0.20, AST 32, ALT 48, Alkaline Phosphatase 109, Troponin I High Sens 4, Total Protein 8.4 H, Albumin 3.9, Globulin 4.5 H, Lipase 52 06/12/23 06:28: WBC 8.4, RBC 4.34, Hgb 13.1, Hct 40.5, MCV 93.3, MCH 30.2, MCHC 32.3, RDW Std Deviation 46.8 H, RDW Coeff of Brisa 13.7, Plt Count 276, MPV 9.7, Immature Gran % (Auto) 0.200, Neut % (Auto) 69.1, Lymph % (Auto) 18.9 L, [place] % (Auto) 8.5, Eos % (Auto) 2.9, Baso % (Auto) 0.4, Absolute Neuts (auto) 5.8, Absolute Lymphs (auto) 1.58, Nucleated RBC % 0, Sodium 141, Potassium 4.4, Chloride 108 H, Carbon Dioxide 28.0, Anion Gap 5, BUN 25 H, Creatinine 0.88, Estim Creat Clear Calc 67.34, Est GFR (MDRD) Af Amer 81, Est GFR (MDRD) Non-Af 67, BUN/Creatinine Ratio 28.2 H, Glucose 104, Calcium 9.1, Phosphorus 4.2, Magnesium 1.9, Total Bilirubin 0.80, AST 18, ALT 36, Alkaline Phosphatase 83, Total Protein 6.6, Albumin 3.2, Globulin 3.4, Albumin/Globulin Ratio 0.9, TSH 2.14 Radiography Diagnostic Testing: Radiology Impression Chest X-Ray 06/11/23 17:50 IMPRESSION: No radiographic evidence of acute cardiopulmonary disease. Electronically Signed: Gatito Potts MD at 18:17 EDT , Echocardiogram 06/11/23 19:31 Interpretation Summary Normal LV size. Mild concentric left ventricular hypertrophy. The left ventricular ejection fraction is 60 %. Left ventricular systolic function is normal. Stage 1 diastolic dysfunction. Aneurysmal atrial septum. Bubble contrast study negative for right to left interatrial shunt. Ordering Physician: Hesham Murphy Referring Physician: RUBÉN DAVILA Performed By: Nena Olivares RCS Renal Artery Duplex 06/12/23 03:17 Interpretation Summary Maximal aortic diameter is approximately at 1.85 x 1.92 cm diameter which is normal. Normal aortic flow velocity noted. Less than 60% stenosis bilateral renal arteries Right renal length maintained at 9.89 cm. Left renal length maintained at 9.82 cm Ordering Physician: Hesham Murphy Referring Physician: Rubén Davila Performed By: Iman Jay RVT D/C Instructions Discharge Diet: Low fat / Low cholesterol Weight Bearing Status: Weight bearing as tolerated Call your doctor if you observe: Fever of 101 or Higher, Shortness of breath, Dizziness, Swelling in the ankles and Chest pain Meaningful Use Info Meaningful Use Diagnoses (Choose all that apply): None applicable Discharge Plan Admission Admit Date/Time: 06/11/23 19:24 Primary Reason for Your Visit: bradycardia, near syncope Attending Provider: Leyla Donnelly Primary Care Provider: Rubén Davila Consulting Providers: Hesham Murphy; Jose Alfredo Sarabia Instructions Patient Instructions: Understanding Bradycardia Discharge Orders/Prescriptions Prescriptions: New amlodipine 10 mg Tablet 10 mg PO DAILY Qty: 30 2RF losartan 100 mg Tablet 100 mg PO DAILY Qty: 30 2RF Continued metoprolol tartrate 50 MG tablet 50 mg PO BID Patient Comments: lansoprazole [Prevacid] 30 MG capsule 30 mg PO DAILY loratadine [Allergy Relief (loratadine)] 10 MG tablet 10 mg PO DAILY Patient Comments: ALLERGIES Vitamin C 3 tab PO DAILY Vitamin D3 1 tab PO DAILY losartan 100 mg tablet 100 mg PO DAILY escitalopram oxalate 10 mg tablet 10 mg PO DAILY meloxicam 15 mg tablet 15 mg PO DAILY lorazepam 0.5 mg tablet 0.5 mg PO TID PRN PRN (Reason: anxiety) Patient Comments: HAS A COUPLE LEFT OVER FROM A PREVIOUS PROCEDURE 06/11/2023 pregabalin 25 mg capsule 25 mg PO BID albuterol sulfate 90 mcg/actuation HFA aerosol inhaler 2 puff INHALATION Q4H PRN PRN (Reason: shortness of breath or wheezing) escitalopram oxalate [Lexapro] 5 mg tablet 10 mg PO DAILY fluticasone propionate [Allergy Relief (fluticasone)] 50 mcg/actuation spray,suspension 1 spray intranasal DAILY PRN (Reason: allergy symptoms) Rx Instructions: administer into each nostril Discontinued hydrochlorothiazide 25 MG tablet 25 mg PO DAILY Patient Comments: on hold as of 06/11/2023 verapamil 240 mg tablet extended release 240 mg PO DAILY Referrals / Follow Up: Shankar Tanner MD [Med Staff - Active Staff] - Within 2 Weeks Rubén Davila MD [Primary Care Provider] - Within 1 Week Disposition Disposition (needs filled in before D/C Order can be placed): Home, Self Care Charges/Coding Visit Charges Inpatient E&M: 38232 Disch Hosp >30min
--- NOTE | 2023-06-12 16:03 | CASEMGMT ---
Patient has order for discharge. RN CM in to discuss needs at discharge. Patient denies needs or help at discharge. Patient had no further questions or concerns.
--- NOTE | 2023-06-12 16:15 | PHA.DC_ITS ---
Pharmacy [facility] has performed discharge medication reconciliation and counseling for this patient. The patient's discharge medication list was reviewed for discrepancies and discrepancies were resolved. The patient was counseled on the following discharge medications and changes in medications for homegoing were reviewed. The Reason for Use, instructions for use, and potential side effects were reviewed for all new medications. The patient's questions regarding all of their medications were answered. 1. Losartan 100 mg PO daily 2. Amlodipine 10 mg PO daily The patient was able to verbally demonstrate an understanding of their discharge medications. Medications at Discharge Home Medications lansoprazole 30 mg capsule,delayed release (Prevacid) 30 mg PO DAILY GERD 09/07/13 loratadine 10 mg tablet (Allergy Relief (loratadine)) 10 mg PO DAILY allergies 09/07/13 metoprolol tartrate 50 mg tablet 50 mg PO BID HEART RATE 09/07/13 Vitamin C 3 tab PO DAILY vitamin 04/04/20 Vitamin D3 1 tab PO DAILY vitamin 04/04/20 albuterol sulfate 90 mcg/actuation aerosol inhaler 2 puff inhalation Q4H PRN PRN shortness of breath or wheezing 06/11/23 escitalopram oxalate 10 mg tablet 10 mg PO DAILY mental health 06/11/23 escitalopram oxalate 5 mg tablet (Lexapro) 10 mg PO DAILY ANXIETY 06/11/23 lorazepam 0.5 mg tablet 0.5 mg PO TID PRN PRN anxiety 06/11/23 losartan 100 mg tablet 100 mg PO DAILY blood pressure 06/11/23 meloxicam 15 mg tablet 15 mg PO DAILY pain 06/11/23 pregabalin 25 mg capsule 25 mg PO BID pain 06/11/23 amlodipine 10 mg tablet 10 mg PO DAILY #30 tabs 06/12/23 fluticasone propionate 50 mcg/actuation nasal spray,suspension (Allergy Relief (fluticasone)) 1 spray intranasal DAILY PRN allergy symptoms 06/12/23 losartan 100 mg tablet 100 mg PO DAILY #30 tabs 06/12/23
== END 2023-06-12 15:42 | disposition home or self-care (01) ==
LOC: ED 19:43 → PCU 23:17
PROVIDERS: Admitting Provider Internal Medicine; Emergency Provider Emergency Medicine; PCP Family Medicine; Visit Provider Student in an Organized Health Care Education/Training Program
DX: R00.1 Bradycardia, unspecified (principal); I70.1 Atherosclerosis of renal artery; R55 Syncope and collapse; Z87.891 Personal history of nicotine dependence; I1A.0 Resistant hypertension; R42 Dizziness and giddiness; R73.03 Prediabetes; Z79.899 Other long term (current) drug therapy; E66.9 Obesity, unspecified; Z68.35 Body mass index [BMI] 35.0-35.9, adult; M19.90 Unspecified osteoarthritis, unspecified site; T44.7X5A Adverse effect of beta-adrenoreceptor antagonists, initial encounter; T46.1X5A Adverse effect of calcium-channel blockers, initial encounter; F32.A Depression, unspecified; K21.9 Gastro-esophageal reflux disease without esophagitis
CPT/HCPCS: 36415; 71045; 80048; 80053; 80076; 83036; 83690; 83735; 84100; 84443; 84484; 85025; 93005; 93306; 93975; 94668; 96372; 96374; 99221; 99285; J7030; A4216; G0378; J0612

== ENCOUNTER → 2023-07-06 | Outpatient (CLI) | payer MEDICARE, SELFPAY | END | disposition home or self-care (01) | LOC: SL 19:57 | PROVIDERS: PCP Family Medicine; Referring Provider Internal Medicine Cardiovascular Disease; Visit Provider Internal Medicine Cardiovascular Disease | DX: G47.10 Hypersomnia, unspecified (principal) | CPT/HCPCS: 95810 ==

== ENCOUNTER → 2023-09-04 | Outpatient (CLI) | payer MEDICARE, SELFPAY | END | disposition home or self-care (01) | LOC: SL 20:06 | PROVIDERS: PCP Family Medicine; Referring Provider Internal Medicine Cardiovascular Disease; Visit Provider Internal Medicine Cardiovascular Disease | DX: G47.33 Obstructive sleep apnea (adult) (pediatric) (principal) | CPT/HCPCS: 95811 ==